=== PATIENT | female | born 1945 | race Caucasian/White ===

== ENCOUNTER 2017-03-14 10:31 | Inpatient (IN) | payer OTHER ==
[2017-03-14] VITALS (15 sets, daily range): BP systolic 110–170; BP diastolic 47–97; PULSE 54–78; TEMP 36.4–36.6; O2SAT 83–100; Ht 165.1 cm; Wt 95.5 kg
[~2017-03-14] VITALS: Ht 165.1 cm; Wt 95.5 kg
--- NOTE | 2017-03-14 10:39 | EMERGENCY ROOM VISIT NOTE ---
History Report prepared by Lindy: Karina Sanford Under the Supervision of: Dr. Kaveh Rosen M.D. First contact with patient: 10:33 Chief Complaint: HEADACHE Stated Complaint: HEADACHE History of Present Illness The patient is a 72 year old female who presents to the Emergency Room with complaints of two syncopal episodes beginning last night. The patient states that last night she had a syncopal episode. Her said she was laying on the floor but is unsure how long the episode lasted. The patient denies feeling a come on of the episode. She then again this morning had a syncopal episode. The patient has been able to ambulate after each episode. She notes a headache and her memory feels "fuzzy". The patient notes tenderness to left side of neck and left shoulder. She also notes chronic abdominal pain. The patient's blood sugar glucose upon arrival was 93. Source of History: patient Onset: last night Position: other (global) Symptom Intensity: 2 Quality: other (syncope) Timing: other (episodes) Associated Symptoms: + neck pain, + abdominal pain Note: The patient is experiencing left shoulder pain. Review of Systems See HPI for pertinent positives & negatives. A total of 10 systems reviewed and were otherwise negative. Past Medical & Surgical Medical Problems: (1) Cardiac arrest (2) Hypertension Family History Patient reports no known family medical history. Social History Smoking Status: Never Smoker Smokeless Tobacco Use: No Marital Status: Housing Status: lives with family Occupation Status: retired Current/Historical Medications Scheduled Atorvastatin (Lipitor), 10 MG PO DAILY Cholecalciferol (D3-50), 1 CAP PO WK Lisinopril/Hctz (Zestoretic 20MG/25MG), 1 TAB PO DAILY Scheduled PRN Aspirin (Aspirin Ec), 325 MG PO DAILY PRN for Pain Allergies Coded Allergies: No Known Allergies (Unverified , 03/14/17) Physical Exam Vital Signs Date Time Temp Pulse Resp B/P (MAP) Pulse Ox O2 Delivery O2 Flow Rate FiO2 03/14/17 14:15 59 18 131/73 99 Room Air 03/14/17 14:00 53 16 136/72 99 Room Air 03/14/17 13:45 59 16 139/77 99 Room Air 03/14/17 13:30 57 14 121/73 100 Room Air 03/14/17 13:15 57 16 140/73 99 Room Air 03/14/17 12:57 67 18 178/108 100 Nasal Cannula 2.0 03/14/17 12:51 56 18 190/77 98 Room Air 03/14/17 12:41 60 20 190/77 96 Room Air 03/14/17 12:38 54 16 200/84 93 Room Air 03/14/17 12:33 48 16 150/86 94 Room Air 03/14/17 12:32 42 03/14/17 12:25 100 Nasal Cannula 2.0 03/14/17 12:12 54 03/14/17 11:51 63 16 168/87 100 Room Air 62 170/109 79 173/95 03/14/17 10:37 67 03/14/17 10:36 36.3 68 18 191/97 95 Room Air Physical Exam GENERAL: Patient is tired appearing and in minimal distress. HEENT: No acute trauma, normocephalic atraumatic, mucous membranes moist, no nasal congestion, no scleral icterus. NECK: No stridor, no adenopathy, no meningismus, trachea is midline. LUNGS: No dyspnea. Clear to auscultation and equal bilaterally. No wheeze, no rhonchi. HEART: Regular rate and rhythm. No murmurs, rubs, gallops appreciated. ABDOMEN: Soft, nontender, bowel sounds positive, no masses appreciated, no peritonitis. BACK: No midline tenderness, no CVA tenderness EXTREMITIES: Normal motion all extremities, no cyanosis, no edema. NEUROLOGIC: Alert and oriented, no acute motor or sensory deficits, no focal weakness, cranial nerves grossly intact. SKIN: Bruising over left eye brow and left lower lip. No rash, no jaundice, no diaphoresis. Medical Decision & Procedures ER Provider Diagnostic Interpretation: Radiology results and stated below per my review and radiologist interpretation: CT SCAN OF THE BRAIN WITHOUT IV CONTRAST CLINICAL HISTORY: Syncope. Headache. COMPARISON STUDY: No priors. TECHNIQUE: Unenhanced axial CT scan of the brain is performed from the vertex to the skull base. The examination is modestly degraded by motion artifact. CT DOSE: 776.86 mGycm FINDINGS: Brain parenchyma: There are age-related involutional changes noting mild subcortical and periventricular microangiopathic change. There is no hemorrhage, mass effect, or evidence of acute territorial ischemia by CT criteria. Mineralization is noted in the basal ganglia. A choroid fissure cyst is incidentally noted on the left. Perez-white matter is preserved. No extra-axial fluid collection is seen. Ventricles, sulci, cisterns: Prominent secondary to involutional change. Intracranial vasculature: There is atherosclerotic calcification of the cavernous carotid arteries. Calvarium: The skeletal structures are osteopenic. There is no depressed calvarial fracture. Sinuses and mastoids: The visualized paranasal sinuses are clear. The mastoid air cells are well pneumatized. Orbits: The bony orbits are grossly intact. There is a left ocular lens implant. IMPRESSION: There is no hemorrhage, mass effect, or evidence of acute territorial ischemia by CT criteria. Electronically signed by: Joey Kong M.D. 03/14/2017 11:19 AM Dictated Date/Time: 03/14/2017 11:17 AM CHEST ONE VIEW PORTABLE CLINICAL HISTORY: Syncope dyspnea COMPARISON STUDY: No previous studies for comparison. FINDINGS: The bones soft tissues and hemidiaphragms are normal. The cardiomediastinal silhouette is normal. The lungs are clear. The pulmonary vasculature is normal. IMPRESSION: Negative chest. Electronically signed by: Al Hanna M.D. 03/14/2017 11:00 AM Dictated Date/Time: 03/14/2017 11:00 AM Laboratory Results 03/14/17 11:00 Red Blood Count 4.70, Mean Corpuscular Volume 88.3, Mean Corpuscular Hemoglobin 29.8, Mean Corpuscular Hemoglobin Concent 33.7, Mean Platelet Volume 10.2, Neutrophils (%) (Auto) 60.2, Lymphocytes (%) (Auto) 28.8, Monocytes (%) (Auto) 8.5, Eosinophils (%) (Auto) 1.9, Basophils (%) (Auto) 0.3, Neutrophils # (Auto) 4.49, Lymphocytes # (Auto) 2.14, Monocytes # (Auto) 0.63, Eosinophils # (Auto) 0.14, Basophils # (Auto) 0.02 03/14/17 11:00 Test 03/14/17 11:00 White Blood Count 7.44 K/uL (4.8-10.8) Red Blood Count 4.70 M/uL (4.2-5.4) Hemoglobin 14.0 g/dL (12.0-16.0) Hematocrit 41.5 % (37-47) Mean Corpuscular Volume 88.3 fL (80-100) Mean Corpuscular Hemoglobin 29.8 pg (25-34) Mean Corpuscular Hemoglobin Concent 33.7 g/dl (32-36) Platelet Count 228 K/uL (130-400) Mean Platelet Volume 10.2 fL (7.4-10.4) Neutrophils (%) (Auto) 60.2 % Lymphocytes (%) (Auto) 28.8 % Monocytes (%) (Auto) 8.5 % Eosinophils (%) (Auto) 1.9 % Basophils (%) (Auto) 0.3 % Neutrophils # (Auto) 4.49 K/uL (1.4-6.5) Lymphocytes # (Auto) 2.14 K/uL (1.2-3.4) Monocytes # (Auto) 0.63 K/uL (0.11-0.59) Eosinophils # (Auto) 0.14 K/uL (0-0.5) Basophils # (Auto) 0.02 K/uL (0-0.2) RDW Standard Deviation 44.8 fL (36.4-46.3) RDW Coefficient of Variation 13.7 % (11.5-14.5) Immature Granulocyte % (Auto) 0.3 % Immature Granulocyte # (Auto) 0.02 K/uL (0.00-0.02) Anion Gap 7.0 mmol/L (3-11) Est Creatinine Clear Calc Drug Dose 58.0 ml/min Estimated GFR () 66.7 Estimated GFR (Non- 57.5 BUN/Creatinine Ratio 13.4 (10-20) Calcium Level 8.5 mg/dl (8.5-10.1) Magnesium Level 2.2 mg/dl (1.8-2.4) Total Creatine Kinase 58 U/L (26-192) Creatine Kinase MB < 0.5 ng/ml (0.5-3.6) Creatine Kinase MB Ratio (0-3.0) Troponin I < 0.015 ng/ml (0-0.045) Thyroid Stimulating Hormone (TSH) 3.230 uIu/ml (0.300-4.500) Laboratory results as reviewed by me. Medications Administered Medications (Trade) Dose Ordered Sig/Fabby Route Start Time Stop Time Status Last Admin Dose Admin Acetaminophen (Tylenol Tab) 1,000 mg NOW STAT PO 03/14/17 11:47 03/14/17 11:48 DC 03/14/17 12:13 1,000 MG Perflutren Lipid Microsphere (Definity) 2 ml ONE ONCE IV 03/14/17 15:05 03/14/17 15:06 DC 03/14/17 15:05 2 ML ECG Indication: syncope Rate (beats per minute): 60 Rhythm: normal sinus Findings: no acute ischemic change, no ectopy ED Course 1034: The patient was evaluated in room B6. A complete history and physical exam was performed. 1130: Normodyne IV 10 mg IV. 1138: The patient's headache has improved. Vitals are being rechecked. Family at bedside notes she has been having difficulty finding words for past 3 days. 1147: Tylenol Tab 1,000 mg PO. 1150: Discussed the patient's case with JESSICA Ogden. The patient will be evaluated for further treatment and disposition. 1156: Upon reevaluation, the patient is hemodynamically stable. Discussed results and treatment plan with the patient. She verbalized understanding and agreement with the treatment plan. The patient will be evaluated for further management. Medical Decision Differential: Vaso-vagal, Intracerebral Event, Neurologic, Infectious, Volume Deficiency, Hypoglycemia, Electrolyte Abnormality, Cardiac Source, Toxicologic, amongst other pathologies entertained. Medication Reconciliation: I attest that I have personally reviewed the patient 's current medication list. Blood pressure screening: Patient was found to have an elevated blood pressure and will be monitored by hospitalist recheck and further treatment. 72 yr old pleasant female with 2 episodes of syncope without preceding event. Both times without clear cause. She notes mild frontal headache. No chest pain , fevers, chills, sob, nausea, vomiting, nor any other symptoms. CT head negative. EKG trop cxr unremarkable. Labs unremarkable. She looks well and is in no distress. Moderate HTN improving while in ED. Given syncope I feel that discharge not safe in this patient and thus requested hospitalist to evaluate her. A short while later patient with unresponsive episode and asystole for roughly 8 to 15 seconds. Code Blue called though patient came too prior to CPR nor ACLS initialization. Repeat vitals HTN and yaquelin though patient without complaints. Will defer further work-up to hospitalist service. Consults Time Called: 1145 Consulting Physician: JESSICA Ogden Returned Call: 1150 Discussed the patient's case. The patient will be evaluated for further treatment and disposition. Impression Primary Impression: Syncope Additional Impressions: Word finding problem Head injury, closed Scribe Attestation The scribe's documentation has been prepared under my direction and personally reviewed by me in its entirety. I confirm that the note above accurately reflects all work, treatment, procedures, and medical decision making performed by me. Departure Information Dispostion Being Evaluated By Hospitalist Referrals No Doctor, Assigned (PCP) Problem Qualifiers
--- NOTE | 2017-03-14 11:01 | DIAGNOSTIC IMAGING REPORT ---
CHEST ONE VIEW PORTABLE CLINICAL HISTORY: Syncope dyspnea COMPARISON STUDY: No previous studies for comparison. FINDINGS: The bones soft tissues and hemidiaphragms are normal. The cardiomediastinal silhouette is normal. The lungs are clear. The pulmonary vasculature is normal. IMPRESSION: Negative chest. Electronically signed by: Al Hanna M.D. 03/14/2017 11:00 AM Dictated Date/Time: 03/14/2017 11:00 AM
[2017-03-14 11:11] LABS: BASO % 0.3 %; BASO ABS # 0.02 K/uL (0-0.2); COMPLETE YES; EOS % 1.9 %; HEMATOCRIT 41.5 % (37-47); IG% 0.3 %; LYMPH % 28.8 %; LYMPH ABS # 2.14 K/uL (1.2-3.4); MEAN CELL VOLUME 88.3 fL (80-100); MEAN CORPUSCULAR HEMOGLOBIN 29.8 pg (25-34); MEAN CORPUSCULAR HGB CONC 33.7 g/dl (32-36); MEAN PLATELET VOLUME 10.2 fL (7.4-10.4); MONO % 8.5 %; NEUT % 60.2 %; PLATELET COUNT 228 K/uL (130-400); WHITE BLOOD COUNT 7.44 K/uL (4.8-10.8)
--- NOTE | 2017-03-14 11:21 | DIAGNOSTIC IMAGING REPORT ---
CT SCAN OF THE BRAIN WITHOUT IV CONTRAST CLINICAL HISTORY: Syncope. Headache. COMPARISON STUDY: No priors. TECHNIQUE: Unenhanced axial CT scan of the brain is performed from the vertex to the skull base. The examination is modestly degraded by motion artifact. CT DOSE: 776.86 mGycm FINDINGS: Brain parenchyma: There are age-related involutional changes noting mild subcortical and periventricular microangiopathic change. There is no hemorrhage, mass effect, or evidence of acute territorial ischemia by CT criteria. Mineralization is noted in the basal ganglia. A choroid fissure cyst is incidentally noted on the left. Perez-white matter is preserved. No extra-axial fluid collection is seen. Ventricles, sulci, cisterns: Prominent secondary to involutional change. Intracranial vasculature: There is atherosclerotic calcification of the cavernous carotid arteries. Calvarium: The skeletal structures are osteopenic. There is no depressed calvarial fracture. Sinuses and mastoids: The visualized paranasal sinuses are clear. The mastoid air cells are well pneumatized. Orbits: The bony orbits are grossly intact. There is a left ocular lens implant. IMPRESSION: There is no hemorrhage, mass effect, or evidence of acute territorial ischemia by CT criteria. Electronically signed by: Joey Kong M.D. 03/14/2017 11:19 AM Dictated Date/Time: 03/14/2017 11:17 AM
[2017-03-14] MEDS ORDERED: LABETALOL HCL IV 5 MG/ML 20ML IV STA (11:30)
[2017-03-14 11:37] LABS: BLOOD UREA NITROGEN 13 mg/dl (7-18); BUN/CREATININE RATIO 13.4 (10-20); CALCIUM 8.5 mg/dl (8.5-10.1); CARBON DIOXIDE 26 mmol/L (21-32); CHLORIDE 110 mmol/L (98-107); CREATININE 0.97 mg/dl (0.60-1.20); GLUCOSE 99 mg/dl (70-99); SODIUM 143 mmol/L (136-145)
[2017-03-14] MEDS ORDERED: CHOLCAP2 PO (11:47)
[2017-03-14] MEDS ORDERED: ACETAMINOPHEN 500 MG TAB PO STA (11:47)
[2017-03-14] MEDS ORDERED: ASPI325T39 PO (11:50)
[2017-03-14] MEDS ORDERED: ATOR10TA82 PO (11:55)
[2017-03-14] MEDS ORDERED: LISI-788 PO (11:56)
[2017-03-14] MEDS ORDERED: ACETAMINOPHEN 325 MG TAB PO PRN (13:30)
[2017-03-14] MEDS ORDERED: ONDANSETRON INJ 2 MG/ML 2 ML VIAL IV PRN (13:30)
[2017-03-14] MEDS ORDERED: NITROGLYCERIN 0.4 MG SL PER TAB CHARGE SL PRN (13:30)
[2017-03-14] MEDS ORDERED: LISINOPRIL 5 MG TAB PO ONE (14:00)
[2017-03-14] MEDS ORDERED: PERFLUTREN LIPID MICROSPHERE (DEFINITY) IV ONE (15:05)
--- NOTE | 2017-03-14 15:45 | History and Physical ---
History & Physical Date & Time of Service: Mar 14, 2017 at 13:37 Chief Complaint: Headache Primary Care Physician: Liliam Mackey D.O. History of Present Illness Source: patient, spouse, clinic records This is a 72 year old female with PMH of hypertension, dyslipidemia, CKD stage III, and other problems listed below who presented to the ED for syncope. Patient had 2 episodes of syncope in past 12 hours. First episode occurred last night- patient does not recall that episode. Her heard a thump from the next room and found her unconscious on the bathroom floor. There was no seizure activity or incontinence. She awoke after approximately 30 seconds. She sustained a facial bruise from falling. Then this morning while sitting on the couch she suddenly slumped backwards and became unconscious. This episode lasted under one minute. She denies any prodrome. No dizziness, chest pain, palpitations, SOB. 911 was called. states for EMS patient could not answer name of president but could answer other questions correctly. states mental status is at baseline in ER. No prior syncope since childhood. Patient was seen by PCP Dr. Mackey on 03/12 and noted word finding difficulty. Onset was 6 months ago. No other focal neurologic symptoms. She reports mild right sided ZAMARRIPA which is intermittent for weeks and self-resolves. Has chronic low back/ LLE pain. She also notes increased urinary frequency. On presentation to the ER patient was hypertensive to 190s systolic. Labetalol was ordered but not given as her BP lowered to 150s systolic. She was initially in NSR with no significant EKG findings. Labs were unremarkable. CT head showed no acute findings. Her stroke score was zero. During my exam patient stated she felt like she was going to faint. The head of bed was lowered. Patient then became unresponsive. Asystole on monitor. Code blue was called. Within approximately 10 seconds she was found to have a pulse and awakened. Rhythm strip showed approximately 8 seconds of asystole. EKG showed sinus bradycardia without ischemic findings. HR improved from 40s to 50s- 60s. She was hypertensive to 200 systolic which improved to 120s-140s. She was evaluated by medical record librarians teacher Dr. Franks who performed bedside echo which showed no obvious wall motion or valve abnormalities. She is now feeling tired. No history of cardiac disorder, TIA, CVA. Past Medical/Surgical History Medical Problems: (1) Benign neoplasm of colon Status: Chronic (2) CKD (chronic kidney disease), stage III Status: Chronic (3) Dyslipidemia Status: Chronic (4) History of ulcerative colitis Status: Chronic (5) Hypertension Status: Chronic (6) Obesity (BMI 30-39.9) Status: Chronic Surgical Problems: (1) H/O colonoscopy with polypectomy Status: Chronic (2) History of cataract surgery Status: Chronic (3) History of hysterectomy Status: Chronic (4) S/P appendectomy Status: Chronic (5) S/P cholecystectomy Status: Chronic (6) S/p lumbar or sacral spine injection Status: Chronic Family History FH: CAD (coronary artery disease) FATHER (first [place] age 65, in 70s of [place]) Social History Smoking Status: Former Smoker Smokeless Tobacco Use: No Alcohol Use: occasionally Marital Status: Housing status: lives with significant other Occupational Status: retired Multi-Drug Resistant Organisms History of MDRO: No Allergies Coded Allergies: No Known Allergies (Unverified , 03/14/17) Home Medications Scheduled Atorvastatin (Lipitor), 10 MG PO HS Cholecalciferol (D3-50), 1 CAP PO WK Scheduled PRN Aspirin (Aspirin Ec), 325 MG PO DAILY PRN for Pain Review of Systems Ten systems reviewed and negative except as noted in HPI. Physical Exam Vital Signs Date Time Temp Pulse Resp B/P (MAP) Pulse Ox O2 Delivery O2 Flow Rate FiO2 03/14/17 12:57 67 18 178/108 100 Nasal Cannula 2.0 03/14/17 12:51 56 18 190/77 98 Room Air 03/14/17 12:41 60 20 190/77 96 Room Air 03/14/17 12:38 54 16 200/84 93 Room Air 03/14/17 12:33 48 16 150/86 94 Room Air 03/14/17 12:32 42 03/14/17 12:25 100 Nasal Cannula 2.0 03/14/17 12:12 54 03/14/17 11:51 63 16 168/87 100 Room Air 62 170/109 79 173/95 03/14/17 10:37 67 03/14/17 10:36 36.3 68 18 191/97 95 Room Air General Appearance: WD/WN, no apparent distress, + pertinent finding (alert 72 year old female) Head: normocephalic, atraumatic Eyes: normal inspection, PERRL, EOMI, sclerae normal ENT: hearing grossly normal, pharynx normal Neck: supple, trachea midline Respiratory/Chest: lungs clear, normal breath sounds, no respiratory distress, no accessory muscle use Cardiovascular: regular rate, rhythm, no murmur Abdomen/GI: normal bowel sounds, non tender, soft Extremities/Musculoskelatal: no calf tenderness, no pedal edema Neurologic/Psych: traffic enumerator II-XII nml as tested, no motor/sensory deficits, alert, normal mood/affect, oriented x 3 Skin: normal color, warm/dry Diagnostics Laboratory Results Results Past 24 Hours Test 03/14/17 11:00 03/14/17 13:35 Range/Units White Blood Count 7.44 4.8-10.8 K/uL Red Blood Count 4.70 4.2-5.4 M/uL Hemoglobin 14.0 12.0-16.0 g/dL Hematocrit 41.5 37-47 % Mean Corpuscular Volume 88.3 80-100 fL Mean Corpuscular Hemoglobin 29.8 25-34 pg Mean Corpuscular Hemoglobin Concent 33.7 32-36 g/dl Platelet Count 228 130-400 K/uL Mean Platelet Volume 10.2 7.4-10.4 fL Neutrophils (%) (Auto) 60.2 % Lymphocytes (%) (Auto) 28.8 % Monocytes (%) (Auto) 8.5 % Eosinophils (%) (Auto) 1.9 % Basophils (%) (Auto) 0.3 % Neutrophils # (Auto) 4.49 1.4-6.5 K/uL Lymphocytes # (Auto) 2.14 1.2-3.4 K/uL Monocytes # (Auto) 0.63 0.11-0.59 K/uL Eosinophils # (Auto) 0.14 0-0.5 K/uL Basophils # (Auto) 0.02 0-0.2 K/uL RDW Standard Deviation 44.8 36.4-46.3 fL RDW Coefficient of Variation 13.7 11.5-14.5 % Immature Granulocyte % (Auto) 0.3 % Immature Granulocyte # (Auto) 0.02 0.00-0.02 K/uL Sodium Level 143 136-145 mmol/L Potassium Level 4.0 3.5-5.1 mmol/L Chloride Level 110 98-107 mmol/L Carbon Dioxide Level 26 21-32 mmol/L Anion Gap 7.0 3-11 mmol/L Blood Urea Nitrogen 13 7-18 mg/dl Creatinine 0.97 0.60-1.20 mg/dl Est Creatinine Clear Calc Drug Dose 58.0 ml/min Estimated GFR () 66.7 Estimated GFR (Non- 57.5 BUN/Creatinine Ratio 13.4 10-20 Random Glucose 99 70-99 mg/dl Calcium Level 8.5 8.5-10.1 mg/dl Total Creatine Kinase 58 26-192 U/L Creatine Kinase MB < 0.5 0.5-3.6 ng/ml Creatine Kinase MB Ratio 0-3.0 Troponin I < 0.015 0-0.045 ng/ml Diagnostic Radiology CT SCAN OF THE BRAIN WITHOUT IV CONTRAST CLINICAL HISTORY: Syncope. Headache. COMPARISON STUDY: No priors. TECHNIQUE: Unenhanced axial CT scan of the brain is performed from the vertex to the skull base. The examination is modestly degraded by motion artifact. CT DOSE: 776.86 mGycm FINDINGS: Brain parenchyma: There are age-related involutional changes noting mild subcortical and periventricular microangiopathic change. There is no hemorrhage, mass effect, or evidence of acute territorial ischemia by CT criteria. Mineralization is noted in the basal ganglia. A choroid fissure cyst is incidentally noted on the left. Perez-white matter is preserved. No extra-axial fluid collection is seen. Ventricles, sulci, cisterns: Prominent secondary to involutional change. Intracranial vasculature: There is atherosclerotic calcification of the cavernous carotid arteries. Calvarium: The skeletal structures are osteopenic. There is no depressed calvarial fracture. Sinuses and mastoids: The visualized paranasal sinuses are clear. The mastoid air cells are well pneumatized. Orbits: The bony orbits are grossly intact. There is a left ocular lens implant. IMPRESSION: There is no hemorrhage, mass effect, or evidence of acute territorial ischemia by CT criteria. CHEST ONE VIEW PORTABLE CLINICAL HISTORY: Syncope dyspnea COMPARISON STUDY: No previous studies for comparison. FINDINGS: The bones soft tissues and hemidiaphragms are normal. The cardiomediastinal silhouette is normal. The lungs are clear. The pulmonary vasculature is normal. IMPRESSION: Negative chest. EKG initial EKG- NSR, 60 bpm, no ST or T wave abnormality repeat EKG post cardiac arrest- sinus bradycardia rate 51 bpm, no ST or T wave abnormality Impression Assessment and Plan SYNCOPE/ CARDIAC ARREST Presented with 2 episodes of syncope at home In ER had unresponsive episode with approximately 8 seconds of asystole on rhythm strip, code blue called, patient awoke before CPR could be initiated Bedside echo showed no obvious wall motion or valve abnormalities Check TTE No ischemic findings on EKG; initial troponin neg- will trend cardiac enzymes Initial ER labs unremarkable Check magnesium- WNL, TSH-WNL, lyme screen-pending May need EP study/ pacemaker Consult cardiology- Dr. Freeman aware Further recommendations per cardiology/ intensive HYPERTENSIVE URGENCY BP elevated high as 200 systolic in ER Improved spontaneously to 100s Was on Maxzide in the past; not currently on any antihypertensives at home WORD FINDING DIFFICULTY Ongoing intermittently x 6 months; speaking without issues on exam; NIH stroke scale= [address] head- no acute findings Likely no acute neurological issue Neuro checks MRI brain and US carotid arteries tomorrow morning URINARY FREQUENCY Check UA, urine culture if indicated DYSLIPIDEMIA Continue statin DVT PROPHYLAXIS Lovenox SQ CODE STATUS= FULL CODE per my discussion with the patient DISPOSITION Lives with Follows with Dr. Liliam Mackey for primary care Patient seen in collaboration with Dr. Padilla. Please see his addendum. ADDENDUM: This is a 72 year old female with recurrent syncopal episodes; presents to the ER; had an episode of syncope with heart block/asystole noted on the monitor. Code klaus called, but she regained consciousness and pulse in ~ 8 seconds. No residual symptoms - states she feels fine now. GEN: no acute distress CVS: +bradycardia, regular rhythm LUNGS: CTA b/l Syncope/Heart Block admit to ICU check TSH, Lyme, Mg monitor in tele transvenous pacer trend enzymes, check echo repeat EKG in AM cardio consultation Advanced Directives Existing Living Will: No Existing Power of Sql Etl Developer: No VTE Prophylaxis VTE Risk Assessment Done? Y/N: Yes Risk Level: Moderate
[2017-03-14] MEDS ORDERED: DOPamine 400MG / 250ML D5W ONE (16:41)
[2017-03-14 16:44] LABS: LYME DISEASE AB IGG NEG (NEG); LYME DISEASE AB IGM NEG (NEG)
[2017-03-14 16:50] LABS: PROTHROMBIN TIME (PATIENT) 11.2 SECONDS (9.0-12.0)
[2017-03-14 16:51] LABS: URINE APPEARANCE CLOUDY (CLEAR); URINE BILIRUBIN NEG (NEG); URINE COLOR YELLOW; URINE EPITHELIAL CELL AUTO >30 /lpf (0-5); URINE NITRITE NEG (NEG); UROBILINOGEN NEG (NEG); ZZUR CULT IF INDIC CLEAN CATCH YES
[2017-03-14 16:55] LABS: MANUAL MICROSCOPIC REQUIRED? NO; REVIEW REQ? YES
--- NOTE | 2017-03-14 16:58 | Critical Care Consultation ---
Critical Care Consultation Date of Consultation: Mar 14, 2017. Attending Physician: James Padilla DO Reason for Consultation: asystole History of Present Illness This is a 72 yo f that is presenting to us after experiencing multiple syncopal episodes associated with a complete heart block. For the past 24 hours the patient has had multiple syncopal episodes. They have no chest pain or SOB associated with it however when she "feels it coming on" she has a sensation of lightheadedness " and I can feel my hear stop beating for 7 or 8 beats". This occurred three times yesterday all with syncope and three time today. One episode yesterday caused injury to her left eyelid and lid and today she had these episodes while in the ED and in the ICU. In the ICU asystole was noted on the monitor and a code blue was called however her asystole resolved on its own before chest compressions could be started. While in the ICU she was laying in bed and once again asystole was noted. Transcutaneous pacers were placed on the chest and patient resolved on her own after 5 seconds. Prior to her asystole she told the nurse " it's coming on" then she developed a blank stare and continued to blink. Once the asystole resolved she started to speak and was no confused however had a hard time " finding my words". Prior to the last 24 hours this has never happened before. She does not that she had syncopal episodes as a child however has not had one since then. She has no significant cardiac history. She does note that her mother had suddenly in her 50s but she thought it was because of a very stressful life. No specific cause of that she could think of. She smoked 20 years prior and she has never had an IA. Past Medical/Surgical History H/O hysterectomy H/O Cataract Surgery Hyperlipidemia Family History FH: CAD (coronary artery disease) FATHER (first IA age 65, in 70s of IA) Social History Smoking Status: Former Smoker Smokeless Tobacco Use: No Alcohol Use: occasionally Marital Status: Housing Status: lives with family Occupation Status: retired Allergies Coded Allergies: No Known Allergies (Unverified , 03/14/17) Home Medications Scheduled Atorvastatin (Lipitor), 10 MG PO HS Cholecalciferol (D3-50), 1 CAP PO WK Scheduled PRN Aspirin (Aspirin Ec), 325 MG PO DAILY PRN for Pain Current Inpatient Medications Current Inpatient Medications Medications (Trade) Dose Ordered Sig/Fabby Route Start Time Stop Time Status Last Admin Dose Admin Acetaminophen (Tylenol Tab) 650 mg Q4H PRN PO 03/14/17 13:30 04/13/17 13:29 Nitroglycerin (Nitrostat Tab) 0.4 mg UD PRN SL 03/14/17 13:30 04/13/17 13:29 Ondansetron HCl (Zofran Inj) 4 mg Q6H PRN IV 03/14/17 13:30 04/13/17 13:29 Enoxaparin Sodium (Lovenox Inj) 40 mg Q24H SQ 03/14/17 14:00 04/13/17 13:59 UNV Review of Systems Constitutional: No fever Eyes: No worsening of vision ENT: No hearing loss Respiratory: No cough, No sputum, No wheezing, No shortness of breath, No dyspnea on exertion, No dyspnea at rest Cardiovascular: No chest pain Abdomen: No pain, No nausea, No vomiting, No diarrhea, No constipation Musculoskeletal: No joint pain, No muscle pain Neurologic: No weakness, No numbness/tingling, No balance problems Psychiatric: No depression symptoms Endocrine: No fatigue Integumentary: No rash Physical Exam Date Time Temp Pulse Resp B/P (MAP) Pulse Ox O2 Delivery O2 Flow Rate FiO2 03/14/17 16:00 99 Room Air 03/14/17 15:00 61 16 144/66 99 Room Air 03/14/17 14:30 66 16 116/71 99 Room Air 03/14/17 14:15 59 18 131/73 99 Room Air 03/14/17 14:00 53 16 136/72 99 Room Air 03/14/17 13:45 59 16 139/77 99 Room Air 03/14/17 13:30 57 14 121/73 100 Room Air 03/14/17 13:15 57 16 140/73 99 Room Air 03/14/17 12:57 67 18 178/108 100 Nasal Cannula 2.0 03/14/17 12:51 56 18 190/77 98 Room Air 03/14/17 12:41 60 20 190/77 96 Room Air 03/14/17 12:38 54 16 200/84 93 Room Air 03/14/17 12:33 48 16 150/86 94 Room Air 03/14/17 12:32 42 03/14/17 12:25 100 Nasal Cannula 2.0 03/14/17 12:12 54 03/14/17 11:51 63 16 168/87 100 Room Air 62 170/109 79 173/95 03/14/17 10:37 67 03/14/17 10:36 36.3 68 18 191/97 95 Room Air General Appearance: well-appearing, no apparent distress Head: normocephalic Eyes: PERRLA, EOMI ENT: normal ear exam Neck: normal range of motion, no tenderness Respiratory: breath sounds normal, no respiratory distress Cardiovasular: regular rate/rhythm, normal S1S2, no murmur Abdomen: non tender, normal bowel sounds, no rebound, no guarding Back: normal inspection Upper Extremities: no edema, normal ROM Lower Extremities: no edema, normal ROM Pulses: carotid (R) (1+), carotid (L) (1+), dorsalis pedis (R) (1+), dorsalis pedis (L) (1+) Neuro: alert, oriented x 3, other (patient feels like she is unable to find her words however does respond appropriately ) Laboratory Results Last 24 Hours Test 03/14/17 11:00 03/14/17 16:02 White Blood Count 7.44 K/uL Red Blood Count 4.70 M/uL Hemoglobin 14.0 g/dL Hematocrit 41.5 % Mean Corpuscular Volume 88.3 fL Mean Corpuscular Hemoglobin 29.8 pg Mean Corpuscular Hemoglobin Concent 33.7 g/dl Platelet Count 228 K/uL Mean Platelet Volume 10.2 fL Neutrophils (%) (Auto) 60.2 % Lymphocytes (%) (Auto) 28.8 % Monocytes (%) (Auto) 8.5 % Eosinophils (%) (Auto) 1.9 % Basophils (%) (Auto) 0.3 % Neutrophils # (Auto) 4.49 K/uL Lymphocytes # (Auto) 2.14 K/uL Monocytes # (Auto) 0.63 K/uL Eosinophils # (Auto) 0.14 K/uL Basophils # (Auto) 0.02 K/uL RDW Standard Deviation 44.8 fL RDW Coefficient of Variation 13.7 % Immature Granulocyte % (Auto) 0.3 % Immature Granulocyte # (Auto) 0.02 K/uL Sodium Level 143 mmol/L Potassium Level 4.0 mmol/L Chloride Level 110 mmol/L Carbon Dioxide Level 26 mmol/L Anion Gap 7.0 mmol/L Blood Urea Nitrogen 13 mg/dl Creatinine 0.97 mg/dl Est Creatinine Clear Calc Drug Dose 58.0 ml/min Estimated GFR () 66.7 Estimated GFR (Non- 57.5 BUN/Creatinine Ratio 13.4 Random Glucose 99 mg/dl Calcium Level 8.5 mg/dl Magnesium Level 2.2 mg/dl Total Creatine Kinase 58 U/L Creatine Kinase MB < 0.5 ng/ml Creatine Kinase MB Ratio Troponin I < 0.015 ng/ml Thyroid Stimulating Hormone (TSH) 3.230 uIu/ml Diagnostic Results CHEST ONE VIEW PORTABLE CLINICAL HISTORY: Syncope dyspnea COMPARISON STUDY: No previous studies for comparison. FINDINGS: The bones soft tissues and hemidiaphragms are normal. The cardiomediastinal silhouette is normal. The lungs are clear. The pulmonary vasculature is normal. IMPRESSION: Negative chest. CT SCAN OF THE BRAIN WITHOUT IV CONTRAST CLINICAL HISTORY: Syncope. Headache. COMPARISON STUDY: No priors. TECHNIQUE: Unenhanced axial CT scan of the brain is performed from the vertex to the skull base. The examination is modestly degraded by motion artifact. CT DOSE: 776.86 mGycm FINDINGS: Brain parenchyma: There are age-related involutional changes noting mild subcortical and periventricular microangiopathic change. There is no hemorrhage, mass effect, or evidence of acute territorial ischemia by CT criteria. Mineralization is noted in the basal ganglia. A choroid fissure cyst is incidentally noted on the left. Perez-white matter is preserved. No extra-axial fluid collection is seen. Ventricles, sulci, cisterns: Prominent secondary to involutional change. Intracranial vasculature: There is atherosclerotic calcification of the cavernous carotid arteries. Calvarium: The skeletal structures are osteopenic. There is no depressed calvarial fracture. Sinuses and mastoids: The visualized paranasal sinuses are clear. The mastoid air cells are well pneumatized. Orbits: The bony orbits are grossly intact. There is a left ocular lens implant. IMPRESSION: There is no hemorrhage, mass effect, or evidence of acute territorial ischemia by CT criteria. Assessment & Plan 1. Symptomatic paroxysmal heart block 2. Hyperlipidemia 3. Metabolic encephalopathy possibly secondary to recurring heart block vs cerebral ischemia NVS - alert and oriented x 3 - MRI is pending per primary team, CT negative CVS - Discussed case with cardiology - as patient is having recurring episodes of asystole and patient is non responsive during these epiodes she will receive a pacemaker - transvenous pacer in the meantime - 2 mcg of dopamine - Transcutaneous pacer if patient is > 15 seconds with asystole RESP - O2 per nursing protocol GI NPO in anticipation for intervention - monitor I&O ENDO - BSG AC HS - if within goal range by 24 hours will d/c DVT - SCD, restart enoxaparin after intervention completed Resident Physician Supervision Note: Dr. Lugo was resident physician during care of patient. I separately evaluated patient and did history and exam. I discussed the case with the resident and generally agree with the findings and plan. Bradycardia with a greater than 6 second cause, required temporary transcutaneous pacing in the ICU. Discussed case with Dr. Freeman and Dr. Montiel, temporary pacemaker inserted in research laboratory specialist. I have personally spent 40 minutes of critical care time in the direct management of this patient. This is a life/limb threatening event. This includes time spent evaluating patient, direct bedside care, chart review, placing orders, interpretation of diagnostic studies, discussion with consultants, patient, and family members, as well as other required patient management activities. This time is exclusive of all separately billable procedures, and teaching time and separate from and in addition to any other critical care service time. Documented By: Trenton Franks, DO Additional Copies To Liliam Mackey D.O.
[2017-03-14] MEDS ORDERED: NURSING DECISION MEDICATION ORDER SCH (17:00)
[2017-03-14] MEDS ORDERED: FENTANYL CITRATE INJ 50 MCG/1 ML 2 ML VIAL ONE (17:26)
[2017-03-14] MEDS ORDERED: DOPAMINE 400MG / D5W IV PRN (18:00)
--- NOTE | 2017-03-14 19:55 | CARDIOLOGY CONSULTATION ---
DATE OF CONSULTATION: 03/14/2017 INDICATION: Syncope. REFERRING: Lindsey Moraes PA-C. PRIMARY CARE PHYSICIAN: Liliam Mackey DO HISTORY OF PRESENT ILLNESS: The patient is a 72-year-old female whose history is notable for hypertension, chronic renal insufficiency, chronic back pain, history of past diagnosis of ulcerative colitis per review of records, but no prior cardiac history. She does carry a history of hyperlipidemia with intermittent lipid reduction therapy, history of recent memory issues, chronic lumbar disc disease, presents now after being brought to the Emergency Room by family after noting patient having had several recent episodes of lightheadedness with last evening associated with syncope with significant episode last evening, lasting approximately 30 seconds with the patient falling and injuring face and lip. At that time occurred without patient having recollection of all. This morning she had similar episode where she slumped backwards and was transiently unconscious for less than 1 minute. The patient notes she sometimes feels them coming on. Had a headache this morning. Notes no chest pain, shortness of breath, orthopnea, PND or peripheral edema. Notes no exertional complaints. Has chronic bowel issues with constipation and generalized bowel upset, but no indigestion or heartburn. Notes no acute weight loss or gain. Notes no fevers, chills or sweats. Notes no melena, hematochezia, dysuria or hematuria. Today, while being evaluated in the Emergency Room, she once again had a complete sinus arrest with asystole with slow return to sinus bradycardia with transient junctional rhythm. The patient has been referred for hospitalization. REVIEW OF SYSTEMS: Otherwise negative. ALLERGIES: None. MEDICATIONS: At home were atorvastatin 10 mg per day, lisinopril and hydrochlorothiazide 20/25 mg per day, cholecalciferol 1 capsule per week. PAST SURGICAL HISTORY: Notable for prior hysterectomy, cholecystectomy, appendectomy, cataract extractions. FAMILY HISTORY: Notable for heart disease in father. SOCIAL HISTORY: The patient is a nonsmoker since 1991. Uses approximately 1 alcoholic beverage per day. PHYSICAL EXAMINATION: GENERAL: The patient is a pleasant, age-appropriate female in no acute distress. Currently denies any chest pains or discomfort. She was examined in the ER and once again seen in the intensive care unit after admission with the patient having transient bradycardic event on transfer to bed. HEENT: Notable for small contusion on the left orbit and lip. NECK: Thin. There is no jugular venous distention. There are no carotid bruits audible. LUNGS: Clear. CARDIOVASCULAR: Regular with normal S1, S2. There is no murmur, gallop or rub. PMI is nondisplaced. ABDOMEN: Soft with mild distention. There is minimal tenderness in the lower quadrants. There is no rebound or guarding. EXTREMITIES: Without cyanosis or clubbing. There is no peripheral edema. NEUROLOGIC: The patient is answering most questions appropriately. DIAGNOSTIC DATA: EKG reveals sinus rhythm with normal tracing. LABORATORY STUDIES: White cell count 7.4, hemoglobin is 14.0. Sodium 143, potassium is 4.0, chloride is 110, bicarb is 26, BUN 13, creatinine 0.97. CK-MB and troponins are normal. TSH is 3.2. Outpatient laboratory studies are notable for hyperlipidemia, past elevation of CRP and sed rate of 25 in June 2016. Chest x-ray reveals no infiltrate or edema. Echocardiogram performed at bedside in the Emergency Room demonstrates on preliminary review, preserved LV systolic function and no significant valvular process. IMPRESSION: A 72-year-old female admitted with Dominguez-Edwards syncope secondary to intermittent sinus arrest and profound pauses. No overt inciting cause. Initial enzymes and EKG do not suggest ischemia with normal tracing immediately post. She has had now 4 episodes in the last 24 hours. PLAN: She will be maintained bed rest in the ICU with external pacer patches in place. The patient will be referred for anticipated dual-chamber pacemaker insertion. If the patient episodes become more pronounced, we will consider transcutaneous pacer insertion and possible low dose dopamine infusion.
[2017-03-14] MEDS ORDERED: MoRPHine SULFATE 2 MG/ML CARP IV STA (20:13)
--- NOTE | 2017-03-14 20:57 | Procedure Note ---
Procedure Note Procedure Date Mar 14, 2017. Procedure Description Procedure Name: Transvenous temporary pacemaker Insertion Procedure time out: patient ID confirmed, correct procedure Consent obtained: written Indications: other (Symptomatic sinus arrest) Description: Local anesthesia with lidocaine. No sedation used. Right IJ access obtained via ultrasound guidance 6Fr sheath placed Temporary pacing wire navigated to RV under fluoro guidance. Pacing confirmed at < 1mA. Wire and sheath sutured into place. Pacer left at 60 bpm, 10mA output. Summary: - Successful transvenous temporary pacemaker insertion. Complications: none Patient tolerated procedure: well Post-procedure vital signs: reviewed and stable
[2017-03-14] MEDS ORDERED: ENOXAPARIN 40 MG/0.4 ML SYR SQ SCH (21:00)
[2017-03-14] MEDS ORDERED: NURSING VERBAL MED ORDER ONE (23:30)
[2017-03-15] VITALS (35 sets, daily range): BP systolic 98–172; BP diastolic 53–103; PULSE 60–78; TEMP 36.6–37.1; O2SAT 89–98
[2017-03-15] MEDS ORDERED: MoRPHine SULFATE 2 MG/ML CARP IV STA (04:41)
[2017-03-15] MEDS ORDERED: CEFAZOLIN IV 2,000 MG in DEXTROSE 5% 50ML 50 ML IV SCH ×2 (06:00→19:00)
[2017-03-15 06:15] LABS: BASO % 0.2 %; BASO ABS # 0.02 K/uL (0-0.2); COMPLETE YES; HEMATOCRIT 41.2 % (37-47); IG% 0.1 %; LYMPH % 33.8 %; LYMPH ABS # 2.85 K/uL (1.2-3.4); MEAN CELL VOLUME 88.8 fL (80-100); MEAN CORPUSCULAR HEMOGLOBIN 29.5 pg (25-34); MEAN CORPUSCULAR HGB CONC 33.3 g/dl (32-36); MEAN PLATELET VOLUME 10.6 fL (7.4-10.4); MONO % 9.3 %; NEUT % 54.6 %; PLATELET COUNT 207 K/uL (130-400); RED BLOOD COUNT 4.64 M/uL (4.2-5.4); WHITE BLOOD COUNT 8.42 K/uL (4.8-10.8)
[2017-03-15 06:51] LABS: BUN/CREATININE RATIO 12.8 (10-20); CALCIUM 8.4 mg/dl (8.5-10.1); CREATININE 0.91 mg/dl (0.60-1.20); MAGNESIUM 2.2 mg/dl (1.8-2.4); POTASSIUM 3.7 mmol/L (3.5-5.1)
[2017-03-15 06:56] LABS: ALB/GLOB RATIO 1.2 (0.9-2); CHOLESTEROL/HDL RATIO 3.3; PHOSPHORUS 2.8 mg/dl (2.5-4.9)
--- NOTE | 2017-03-15 10:29 | Critical Care Progress Note ---
Critical Care Progress Note Date of Service Mar 15, 2017. ICU Day ICU Day Number: [address] Franks Subjective No events overnight since the transvenous pacer was placed. Denies any chest pain, SOB, lightheadedness. Pending permanent placement of pacemaker today. Objective General: ambulatory, not in acute distress, pacer pads in place Skin: no rashes noted, no suspicious lesions, no areas of inflammations/ lacerations/ erythema noted, transvenous site is clean and dry CVS: S1/ S2 noted, RRR, no rubs/ murmurs noted, no cyanosis RVS:not in acute respiratory distress, no wheezing/ rales/ crackles noted, decreased to bilat bases ENT: no erythema/ injection/ ulcerations noted in the pharynx, no lymphadenopathy Neck:inspection WNL, full ROM of neck, no bruits noted, transvenous pacer noted ABD: BSx4, no pain/ tenderness on palpation, no organomegaly MSK: inspection of all limbs WNL, motor and sensation intact in all limbs, no swelling/ pain on palpation of joints NVS: PERRL, EOMI, sensation intact in all extremities Lymph: No lymphadenopathy palpable Assessment & Plan 1. Symptomatic paroxysmal heart block 2. Hyperlipidemia 3. Metabolic encephalopathy possibly secondary to recurring heart block vs cerebral ischemia NVS - alert and oriented x 3 - MRI is pending per primary team, CT negative- may have to be deferred until after the pacer placed or d/c as ALOC more likely secondary to the asystolic episodes CVS - Discussed case with cardiology - transvenous pacer currently in place - permanent pacer pending placement today RESP - O2 per nursing protocol GI NPO in anticipation for intervention - monitor I&O ENDO - BSG have been within goal range DVT - SCD, restart enoxaparin after intervention completed Patient is an acceptable candidate for downgrade after procedure is completed Resident Physician Supervision Note: Dr. Lugo was resident physician during care of patient. I separately evaluated patient and did history and exam. I discussed the case with the resident and generally agree with the findings and plan. Patient feeling improved status post pacemaker. Held additional neuroimaging this morning due to pacer requiring placement first. Stable for downgraded to telemetry status given permanent pacemaker placement. Documented By: Trenton Franks DO Consults & Procedures Consultants: Dr Freeman/ Dr Montiel- CVS Procedures: Transvenous pacer Data Medications: Current Inpatient Medications Medications (Trade) Dose Ordered Sig/Fabby Route Start Time Stop Time Status Last Admin Dose Admin Acetaminophen (Tylenol Tab) 650 mg Q4H PRN PO 03/14/17 13:30 04/13/17 13:29 03/14/17 20:24 650 MG Nitroglycerin (Nitrostat Tab) 0.4 mg UD PRN SL 03/14/17 13:30 04/13/17 13:29 Ondansetron HCl (Zofran Inj) 4 mg Q6H PRN IV 03/14/17 13:30 04/13/17 13:29 Enoxaparin Sodium (Lovenox Inj) 40 mg Q24H SQ 03/14/17 21:00 04/13/17 20:59 Future Hold Dopamine HCl/ Dextrose 250 ml @ 0 mls/hr Q0M PRN IV 03/14/17 18:00 04/13/17 17:59 Cefazolin Sodium 60 ml @ 100 mls/hr PREOP IV 03/16/17 06:00 03/16/17 18:00 Vital Signs: Date Time Temp Pulse Resp B/P (MAP) Pulse Ox O2 Delivery O2 Flow Rate FiO2 03/15/17 10:00 72 22 100/66 (77) 94 Room Air 03/15/17 09:44 36.6 62 24 104/80 97 Room Air 03/15/17 08:00 97 Room Air 03/15/17 08:00 36.6 62 24 104/80 (88) 97 Room Air 03/15/17 06:02 62 120/75 (90) 94 03/15/17 05:47 62 140/86 (104) 98 03/15/17 05:32 62 98/71 (80) 97 03/15/17 05:17 62 135/72 (93) 94 03/15/17 05:02 62 133/67 (89) 89 03/15/17 04:47 60 127/53 (77) 94 03/15/17 04:32 61 148/64 (92) 95 03/15/17 04:17 64 134/87 (103) 94 03/15/17 04:02 36.8 61 119/78 (92) 95 Room Air 03/15/17 04:00 Room Air 03/15/17 03:47 69 118/94 (102) 95 03/15/17 03:32 70 152/93 (112) 96 03/15/17 03:02 68 159/80 (106) 94 03/15/17 02:48 78 150/80 (103) 90 03/15/17 02:32 77 150/76 (100) 95 03/15/17 02:17 76 164/78 (106) 93 03/15/17 02:02 63 172/77 (108) 95 03/15/17 01:47 63 157/71 (99) 94 03/15/17 01:33 62 145/69 (94) 96 03/15/17 01:17 61 139/103 (115) 97 03/15/17 01:02 70 150/77 (101) 90 03/15/17 00:47 63 138/71 (93) 93 03/15/17 00:32 60 143/77 (99) 95 Room Air 03/15/17 00:32 37.1 60 143/77 (99) 95 03/15/17 00:17 60 103/72 (82) 95 Room Air 03/15/17 00:02 36.7 62 115/55 (75) 96 Room Air 03/14/17 23:59 Room Air 03/14/17 23:47 61 140/96 (111) 94 Room Air 03/14/17 23:32 63 114/51 (72) 92 Room Air 03/14/17 23:17 60 110/60 (77) 96 03/14/17 23:02 67 139/73 (95) 92 03/14/17 22:02 61 153/70 (97) 93 03/14/17 20:00 36.4 73 154/97 (116) 95 Room Air 03/14/17 20:00 99 Room Air 03/14/17 19:30 67 157/47 (83) 95 03/14/17 19:15 78 83 03/14/17 19:00 66 144/71 (95) 96 Room Air 03/14/17 18:50 69 133/79 (97) 96 03/14/17 18:25 70 16 165/92 (116) 95 Room Air 03/14/17 16:47 54 139/80 (99) 92 Room Air 03/14/17 16:32 63 134/71 (92) 93 Room Air 03/14/17 16:02 36.6 58 16 170/79 (109) 94 Room Air 03/14/17 16:00 99 Room Air 03/14/17 15:00 61 16 144/66 99 Room Air 03/14/17 14:30 66 16 116/71 99 Room Air 03/14/17 14:15 59 18 131/73 99 Room Air 03/14/17 14:00 53 16 136/72 99 Room Air 03/14/17 13:45 59 16 139/77 99 Room Air 03/14/17 13:30 57 14 121/73 100 Room Air 03/14/17 13:15 57 16 140/73 99 Room Air 03/14/17 12:57 67 18 178/108 100 Nasal Cannula 2.0 03/14/17 12:51 56 18 190/77 98 Room Air 03/14/17 12:41 60 20 190/77 96 Room Air 03/14/17 12:38 54 16 200/84 93 Room Air 03/14/17 12:33 48 16 150/86 94 Room Air 03/14/17 12:32 42 03/14/17 12:25 100 Nasal Cannula 2.0 03/14/17 12:12 54 03/14/17 11:51 63 16 168/87 100 Room Air 62 170/109 79 173/95 03/14/17 10:37 67 03/14/17 10:36 36.3 68 18 191/97 95 Room Air Laboratory Results: Last 24 Hours Test 03/14/17 11:00 03/14/17 16:30 03/14/17 17:01 03/14/17 23:10 White Blood Count 7.44 K/uL Red Blood Count 4.70 M/uL Hemoglobin 14.0 g/dL Hematocrit 41.5 % Mean Corpuscular Volume 88.3 fL Mean Corpuscular Hemoglobin 29.8 pg Mean Corpuscular Hemoglobin Concent 33.7 g/dl Platelet Count 228 K/uL Mean Platelet Volume 10.2 fL Neutrophils (%) (Auto) 60.2 % Lymphocytes (%) (Auto) 28.8 % Monocytes (%) (Auto) 8.5 % Eosinophils (%) (Auto) 1.9 % Basophils (%) (Auto) 0.3 % Neutrophils # (Auto) 4.49 K/uL Lymphocytes # (Auto) 2.14 K/uL Monocytes # (Auto) 0.63 K/uL Eosinophils # (Auto) 0.14 K/uL Basophils # (Auto) 0.02 K/uL RDW Standard Deviation 44.8 fL RDW Coefficient of Variation 13.7 % Immature Granulocyte % (Auto) 0.3 % Immature Granulocyte # (Auto) 0.02 K/uL Prothrombin Time 11.2 SECONDS Prothromb Time International Ratio 1.0 Sodium Level 143 mmol/L Potassium Level 4.0 mmol/L Chloride Level 110 mmol/L Carbon Dioxide Level 26 mmol/L Anion Gap 7.0 mmol/L Blood Urea Nitrogen 13 mg/dl Creatinine 0.97 mg/dl Est Creatinine Clear Calc Drug Dose 58.0 ml/min Estimated GFR () 66.7 Estimated GFR (Non- 57.5 BUN/Creatinine Ratio 13.4 Random Glucose 99 mg/dl Calcium Level 8.5 mg/dl Magnesium Level 2.2 mg/dl Total Creatine Kinase 58 U/L 57 U/L 88 U/L Creatine Kinase MB < 0.5 ng/ml < 0.5 ng/ml < 0.5 ng/ml Creatine Kinase MB Ratio Troponin I < 0.015 ng/ml < 0.015 ng/ml 0.066 ng/ml Thyroid Stimulating Hormone (TSH) 3.230 uIu/ml Lyme Disease IgG Antibody NEG Lyme Disease IgM Antibody NEG Bedside Glucose 102 mg/dl Chemistry Specimen Hemolysis Test 03/15/17 05:49 White Blood Count 8.42 K/uL Red Blood Count 4.64 M/uL Hemoglobin 13.7 g/dL Hematocrit 41.2 % Mean Corpuscular Volume 88.8 fL Mean Corpuscular Hemoglobin 29.5 pg Mean Corpuscular Hemoglobin Concent 33.3 g/dl Platelet Count 207 K/uL Mean Platelet Volume 10.6 fL Neutrophils (%) (Auto) 54.6 % Lymphocytes (%) (Auto) 33.8 % Monocytes (%) (Auto) 9.3 % Eosinophils (%) (Auto) 2.0 % Basophils (%) (Auto) 0.2 % Neutrophils # (Auto) 4.59 K/uL Lymphocytes # (Auto) 2.85 K/uL Monocytes # (Auto) 0.78 K/uL Eosinophils # (Auto) 0.17 K/uL Basophils # (Auto) 0.02 K/uL RDW Standard Deviation 44.8 fL RDW Coefficient of Variation 13.8 % Immature Granulocyte % (Auto) 0.1 % Immature Granulocyte # (Auto) 0.01 K/uL Sodium Level 146 mmol/L Potassium Level 3.7 mmol/L Chloride Level 112 mmol/L Carbon Dioxide Level 27 mmol/L Anion Gap 7.0 mmol/L Blood Urea Nitrogen 12 mg/dl Creatinine 0.91 mg/dl Est Creatinine Clear Calc Drug Dose 61.8 ml/min Estimated GFR () 72.0 Estimated GFR (Non- 62.2 BUN/Creatinine Ratio 12.8 Random Glucose 98 mg/dl Calcium Level 8.4 mg/dl Phosphorus Level 2.8 mg/dl Magnesium Level 2.2 mg/dl Total Bilirubin 0.8 mg/dl Aspartate Amino Transf (AST/SGOT) 22 U/L Alanine Aminotransferase (ALT/SGPT) 22 U/L Alkaline Phosphatase 54 U/L Total Protein 6.4 gm/dl Albumin 3.5 gm/dl Globulin 2.9 gm/dl Albumin/Globulin Ratio 1.2 Triglycerides Level 124 mg/dl Cholesterol Level 163 mg/dl HDL Cholesterol 50 mg/dl LDL Cholesterol, Calculated 88 mg/dl VLDL Cholesterol, Calculated 25 mg/dl Cholesterol/HDL Ratio 3.3
[2017-03-15] MEDS ORDERED: FENTANYL CITRATE INJ 50 MCG/1 ML 2 ML VIAL ONE (11:10)
[2017-03-15] MEDS ORDERED: MIDAZOLAM HCL 5 MG/ML 1 ML VIAL ONE (11:10)
[2017-03-15] MEDS ORDERED: LIDOCAINE HCL 1% 20 ML VIAL ONE (11:11)
[2017-03-15] MEDS ORDERED: BACITRACIN 50000 UNIT VIAL ONE (11:11)
[2017-03-15] MEDS ORDERED: BUPIVACAINE 0.5 % 5 MG/1 ML MPF 30ML VIAL ONE (11:11)
--- NOTE | 2017-03-15 11:11 | CARDIOLOGY CONSULTATION ---
DATE OF CONSULTATION: 03/15/2017 REFERRING PHYSICIAN: Dr. Lionel Freeman. CHIEF COMPLAINT: Syncope. HISTORY OF PRESENT ILLNESS: Mrs. Luci Loaiza is a 72-year-old woman who recently experienced a series of syncopal episodes. Initially, the patient was at home and experienced a syncopal episode in the bathroom. She was accompanied by her and had suffered a mild injury to her face. The morning following that incident, the patient apparently had another witnessed episode while in the seated position. The patient was transported to [facility] for an evaluation where she was noted to have sinus arrest and associated symptoms of presyncope and syncope. The patient states that she has minimal prodrome associated with the episode. She does get a brief sensation of dizziness and a feeling in her chest. The episodes themselves appear to have started quite recently. She denied any additional episodes of dizziness or lightheadedness leading up to her syncopal episode 2 days ago. In general, she is very sedentary. She states she was interested in the beginning with exercise program but is yet to do so. She ambulates around her house without notable symptoms of dyspnea or chest discomfort. She is not aware of any palpitations. Over the past several months, she has noted increasing dyspnea and difficulty with activity due to what she describes as fatigue. She denies any orthopnea or paroxysmal nocturnal dyspnea. She denies any recent constitutional symptoms such as fevers or chills. She has an occasional cough which is nonproductive, rare and longstanding in nature. PAST MEDICAL HISTORY: Significant for: 1. Colon polyps. 2. Renal dysfunction. 3. Dyslipidemia. 4. Ulcerative colitis remotely. 5. Hypertension. PAST SURGICAL HISTORY: Includes: 1. Cataracts. 2. Hysterectomy. 3. Appendectomy. 4. Cholecystectomy. 5. Spine injection. FAMILY HISTORY: Noncontributory but no premature coronary disease. SOCIAL HISTORY: Significant for remote history of tobacco abuse but no history of alcohol abuse. Currently lives with her locally. OUTPATIENT MEDICATIONS: Include aspirin, atorvastatin, and vitamin D. MEDICAL ALLERGIES: No known medical allergy. REVIEW OF SYSTEMS: Complete review of systems was performed and the pertinent positives are noted in the history of present illness, the remainder being negative with the exception of some memory difficulties. Over the past several months, the patient has had some difficulty with word finding and overall mentation has been different. PHYSICAL EXAMINATION: GENERAL: The patient is alert and oriented. Mood and affect appear normal. She answers all questions appropriately. She is in no acute distress. VITAL SIGNS: Include blood pressure 100/66 with a pulse of 72. HEENT: Her sclerae are anicteric. Her pupils are equal, reactive to light and accommodation. Extraocular movements are intact. NECK: Palpation of submandibular region did not reveal any significant lymphadenopathy. Carotids are palpable bilaterally. There are no bruits on auscultation. I did not appreciate any jugular venous distention, although she did have a catheter in the right internal jugular vein. Thyroid is not enlarged. NEUROLOGIC: Reveals the cranial nerves to be intact. LUNGS: Auscultation of both lungs reveals them to be clear. There are no rales, wheezes or rhonchi. CARDIAC: Reveals her to be in a regular rhythm with normal S1, normal S2. I did not appreciate any murmurs on exam. PMI is not markedly displaced on palpation. ABDOMEN: Soft and nontender. EXTREMITIES: Evaluation of both wrists reveals radial pulses that are equal in intensity. There is no evidence of cyanosis or clubbing. Evaluation of her lower extremities did not reveal any significant peripheral edema, although she did have SCDs in place. I did not appreciate any rashes on exam today. LABORATORY STUDIES: Since admission included a white cell count of 8.4, hemoglobin of 13.7, a platelet count of 207. Sodium is 146, potassium is 3.7, BUN is 12, creatinine is 0.9. Cardiac troponin is 0.06. The patient did have a chest x-ray at the time of admission which did not reveal any evidence of acute cardiopulmonary disease. Head CT scan was also performed which did not reveal any evidence of acute ischemia or hemorrhage. The patient had a 12-lead EKG obtained at the time of admission which revealed her to be in sinus bradycardia without significant conduction abnormality. Echocardiogram was also obtained which revealed preserved LV systolic function. ASSESSMENT AND PLAN: Syncope: The patient has evidence of sinus arrest associated with her episodes. The patient actually does have a suggestion of sinus node dysfunction with her bradycardia. Does not appear to be other conduction disease such as atrioventricular michelle disease. Etiology behind her dysfunction is also unclear, this is likely age related. She is not on any medical therapy which should have precipitated these events. Her thyroid function is normal and she did not appear to be at risk for Lyme disease. Lyme disease is more likely to produce some form of atrioventricular block and her Lyme titers were also negative. There is a possibility that she has a form of infiltrative disease, although this has not produced any evidence of cardiomyopathy. This is also more likely to produce some form of atrioventricular block rather than simple sinus arrest. At this juncture, it seems obvious that she will require some form of pacing support. Temporary pacemaker was placed last night due to the recurrent nature of her episode. I did discuss the risks, benefits and alternatives to a permanent implant, she is agreeable and we will plan on proceeding later today.
--- NOTE | 2017-03-15 11:20 | ECHOCARDIOGRAM REPORT ---
*NOTICE TO RECEIVING CONSTITUTION PARTY AGENCY This information is strictly Confidential and protected under [place] law. [place] law prohibits you from making any further disclosure of this information unless further disclosure is expressly permitted by the written consent of the person to whom it pertains or is authorized by law. A general authorization for the release of medical or other information is not sufficient for this purpose. Hospital accepts no responsibility if the information is made available to any other person, INCLUDING THE PATIENT. Interpretation Summary * Name: MARGA ALBERT Study Date: 03/14/2017 02:35 PM BP: 131/73 mmHg * Patient Location: .ED HR: 59 * : 1945 (M/d/yyyy) Gender: Female Height: 65 in * Age: 72 yrs Ethnicity: CA Weight: 209 lb * Ordering Physician: Lindsey Moraes * Performed By: Sophia Wong * * Reason For Study: CARDIAC ARREST * BSA: 2.0 m2 * -- Conclusions -- * Normal LV chamber size with mild concentric LVH, sigmoid appearing septum. * Normal LV systolic function, EF 55-60%. * No segmental left ventricular wall motion abnormalities are noted. * Grade I diastolic dysfunction. * No significant valvular pathology. Procedure Details * A complete two-dimensional transthoracic echocardiogram was performed (2D, M-mode, Doppler and color flow Doppler). * The study was technically limited. * The study was technically difficult. * There were technical limitations due to patient'sbody habitus * A contrast injection of Definity was performed to improve assessment of LV function. * Contrast was injected into an intravenous site in the left arm. * One vial of Definity ultrasound contrast was diluted in normal saline to a total volume of 10 ml. A total of '4' ml of solution was administered during imaging. * Lot # [id number] of Definity utilized for procedure. * Expiration date 04/10. * The attending nurse who injected the contrast agent was BAIRON ARIZA RN. Left Ventricle * The left ventricle is normal in size. * There is no thrombus. * There is mild concentric left ventricular hypertrophy. * The basal septum is thickened and angulated consistent with sigmoid septum. * Ejection Fraction = 55-60%. * Left ventricular systolic function is normal. * No segmental left ventricular wall motion abnormalities are noted. * The left ventricular wall motion is normal. Right Ventricle * The right ventricular cavity size is normal (basal dimension <4.2 cm in right ventricular apical 4-chamber view). * The right ventricular systolic function is normal as assessed by tricuspid annular plane systolic excursion (TAPSE) (normal >1.5 cm). Atria * The left atrial size is normal. * Right atrial size is normal. * No ASD detected; PFO is not assessed. Mitral Valve * The mitral valve is normal in structure and function. Tricuspid Valve * The tricuspid valve is normal in structure and function. Aortic Valve * The aortic valve is not well visualized. * No hemodynamically significant valvular aortic stenosis. * There is no significant aortic regurgitation. Pulmonic Valve * The pulmonary valve is not well seen, but the Doppler examination is normal without significant regurgitation or stenosis. Great Vessels * The aortic root is not well visualized. Pericardium/Pleural * There is no pericardial effusion. Left Ventricular Diastolic Function * Grade I diastolic dysfunction, (abnormal relaxation pattern). MMode 2D Measurements and Calculations IVSd 1.7 cm IVSs 2.2 cm LVIDd 3.4 cm LVIDs 2.2 cm LVPWd 1.1 cm LVPWs 1.5 cm IVS/LVPW 1.5 FS 35.2 % EDV(Teich) 46.4 ml ESV(Teich) 15.9 ml EF(Teich) 65.7 % EDV(cubed) 38.3 ml ESV(cubed) 10.4 ml EF(cubed) 72.7 % % IVS thick 27.0 % % LVPW thick 28.5 % LV mass(C)d 167.6 grams LV mass(C)dI 83.2 grams/m\S\2 LV mass(C)s 154.7 grams LV mass(C)sI 76.7 grams/m\S\2 SV(Teich) 30.5 ml SI(Teich) 15.1 ml/m\S\2 SV(cubed) 27.8 ml SI(cubed) 13.8 ml/m\S\2 LVAd ap4 32.6 cm\S\2 LVLd ap4 7.8 cm EDV(MOD-sp4) 111.4 ml EDV(sp4-el) 116.2 ml LVAs ap4 18.7 cm\S\2 LVLs ap4 6.3 cm ESV(MOD-sp4) 46.5 ml ESV(sp4-el) 47.2 ml EF(MOD-sp4) 58.3 % EF(sp4-el) 59.4 % LVAd ap2 32.0 cm\S\2 LVLd ap2 7.5 cm EDV(MOD-sp2) 110.8 ml EDV(sp2-el) 116.2 ml LVAs ap2 18.0 cm\S\2 LVLs ap2 6.0 cm ESV(MOD-sp2) 45.0 ml ESV(sp2-el) 46.2 ml EF(MOD-sp2) 59.4 % EF(sp2-el) 60.2 % LVLd %diff -3.63 % EDV(MOD-bp) 113.5 ml LVLs %diff -5.81 % ESV(MOD-bp) 46.7 ml EF(MOD-bp) 58.8 % SV(MOD-sp4) 64.9 ml SI(MOD-sp4) 32.2 ml/m\S\2 SV(MOD-sp2) 65.8 ml SI(MOD-sp2) 32.7 ml/m\S\2 SV(MOD-bp) 66.7 ml SI(MOD-bp) 33.1 ml/m\S\2 SV(sp4-el) 69.0 ml SI(sp4-el) 34.2 ml/m\S\2 SV(sp2-el) 69.9 ml SI(sp2-el) 34.7 ml/m\S\2 Doppler Measurements and Calculations MV E max becky 79.1 cm/sec MV A max becky 111.2 cm/sec MV E/A 0.71 MV dec time 0.36 sec Ao V2 max 121.6 cm/sec Ao max PG 5.9 mmHg Ao max PG (full) 1.4 mmHg LV V1 max PG 4.5 mmHg LV V1 max 106.6 cm/sec PA V2 max 43.1 cm/sec PA max PG 0.74 mmHg
[2017-03-15] MEDS ORDERED: OXYCODONE HCL IR 5 MG TAB (IMMEDIATE RELEASE) PO PRN (12:30)
--- NOTE | 2017-03-15 13:03 | OPERATIVE REPORT ---
DATE OF OPERATION: 03/15/2017 PROCEDURE PERFORMED: Implantation of dual chamber permanent pacemaker. STAFF DISPENSING OPTICIAN: Dr. Abdullahi Del Toro. INDICATIONS: Ms. Luci Loaiza is a 72-year-old woman who presented to [facility] with syncope and sinus arrest. Due to the nature of her symptoms she was felt to be a good candidate for dual chamber pacemaker due to symptomatic nonreversible sinus node dysfunction. A dual chamber device was selected as the patient is currently in sinus rhythm and we wish to maintain AV synchrony. PROCEDURE IN DETAIL: The patient was informed of risks, benefits and alternatives to the intended procedure. She understood such and wished to proceed. She was taken to the electrophysiology suite in a fasting state. Preoperative antibiotic had been administered. The patient was monitored electrocardiographically throughout today's procedure and conscious sedation was administered per protocol. The left deltopectoral area was prepped and draped in usual sterile fashion. This area was anesthetized using subcutaneous administration of xylocaine and Marcaine solution. An incision was made at this site and carried down to the prepectoralis fascia using sharp dissection. Electrocautery was also employed for dissection as well as for hemostasis. A device pocket was fashioned in the tissues above the pectoralis muscles. Subsequent to this left axillary vein was accessed twice using the modified Seldinger technique. Sheaths were placed over guidewires at this site and used for passage of the pacing wires to their respective chambers under fluoroscopic guidance. This included right atrial and right ventricular leads. Adequate sensing and threshold parameters were obtained prior to active fixation of these leads to the endocardial surface. The proximal portion of the leads were then sutured to the prepectoralis fascia using nonabsorbable suture. The device pocket was irrigated with an antibiotic solution. Leads were then attached to the device. The device and leads were then placed in the pocket and the pocket was closed in 3 layers with absorbable sutures. Steri-strips and sterile dressing were applied. The device was tested noninvasively prior to conclusion of the procedure. The patient tolerated the procedure well. There were no immediate complications. EQUIPMENT USED: 1. New pulse generator, artist's representative Medtronic model #A2DR01, serial #[id number]. 2. Right atrial lead, artist's representative Med[employer]onic, model #4076, serial #[id number]. 3. Right ventricular lead, artist's representative Medtronic, model #4076, serial #[id number]. MEASURE DATA: 1. Right atrial lead: P-waves measured 1.9 millivolts, pacing threshold was 0.5 volts at 0.4 milliseconds with a pacing impedance of 437 ohms. 2. Right ventricular lead: R-waves measured 11.6 millivolts, pacing threshold was 0.5 volts, 0.4 milliseconds with a pacing impedance of 855 ohms. IMPRESSION: Successful implantation of dual chamber permanent pacemaker. PLAN: The patient will be monitored in the rapp overnight. Additional dose of antibiotics will be administered. Chest x-ray and reinterrogation of the device will be performed in the morning. Should all parameters be adequate and the patient be feeling well she will be considered for discharge at that time. I attest to the content of the Intraoperative Record and any orders documented therein. Any exception s are noted below.
--- NOTE | 2017-03-15 17:00 | Progress Note ---
Subjective Date of Service: Mar 15, 2017. Subjective Pt evaluation today including: conversation w/ patient, physical exam, lab review, review of studies, review of inpatient medication list Saw/examined the patient in room 104 she had a permanent pacemaker inserted today Doing well No chest pain/shortness of breath Still has issues with word finding Problem List Medical Problems: (1) Head injury, closed Status: Acute (2) Syncope Status: Acute (3) Word finding problem Status: Acute Review of Systems Constitutional: No fever, No chills Respiratory: No shortness of breath Cardiac: No chest pain Abdomen: No pain, No nausea, No vomiting, No diarrhea Neurologic: No weakness, No numbness/tingling, No vertigo Heme: No abnormal bleeding/bruising Medications Current Inpatient Medications Medications (Trade) Dose Ordered Sig/Fabby Route Start Time Stop Time Status Last Admin Dose Admin Acetaminophen (Tylenol Tab) 650 mg Q4H PRN PO 03/14/17 13:30 04/13/17 13:29 03/14/17 20:24 650 MG Nitroglycerin (Nitrostat Tab) 0.4 mg UD PRN SL 03/14/17 13:30 04/13/17 13:29 Ondansetron HCl (Zofran Inj) 4 mg Q6H PRN IV 03/14/17 13:30 04/13/17 13:29 Enoxaparin Sodium (Lovenox Inj) 40 mg Q24H SQ 03/14/17 21:00 04/13/17 20:59 Future Hold Dopamine HCl/ Dextrose 250 ml @ 0 mls/hr Q0M PRN IV 03/14/17 18:00 04/13/17 17:59 Cefazolin Sodium 2000 mg/Dextrose 60 ml @ 100 mls/hr Q8H IV 03/15/17 19:00 03/16/17 18:59 Acetaminophen (Tylenol Tab) 650 mg Q4H PRN PO 03/15/17 12:30 04/14/17 12:29 Oxycodone HCl (Roxicodone Immediate Rel Tab) 5 mg Q6 PRN PO 03/15/17 12:30 03/29/17 12:29 03/15/17 16:02 5 MG Objective Vital Signs Date Time Temp Pulse Resp B/P (MAP) Pulse Ox O2 Delivery O2 Flow Rate FiO2 6/22/17 16:00 98 Room Air 03/15/17 16:00 36.8 61 18 157/86 (109) 98 Room Air 03/15/17 13:33 75 106/81 (89) 97 Room Air 03/15/17 13:02 60 114/71 (85) 94 Room Air 03/15/17 13:00 96 Room Air 03/15/17 12:47 36.6 62 129/78 (95) 96 Room Air 03/15/17 12:32 61 16 135/74 (94) 94 Room Air 03/15/17 12:17 68 13 139/82 (101) 99 Mask 6 03/15/17 10:00 72 22 100/66 (77) 94 Room Air 03/15/17 09:44 36.6 62 24 104/80 97 Room Air 03/15/17 08:00 97 Room Air 03/15/17 08:00 36.6 62 24 104/80 (88) 97 Room Air 03/15/17 06:02 62 120/75 (90) 94 03/15/17 05:47 62 140/86 (104) 98 03/15/17 05:32 62 98/71 (80) 97 03/15/17 05:17 62 135/72 (93) 94 03/15/17 05:02 62 133/67 (89) 89 03/15/17 04:47 60 127/53 (77) 94 03/15/17 04:32 61 148/64 (92) 95 03/15/17 04:17 64 134/87 (103) 94 03/15/17 04:02 36.8 61 119/78 (92) 95 Room Air 03/15/17 04:00 Room Air 03/15/17 03:47 69 118/94 (102) 95 03/15/17 03:32 70 152/93 (112) 96 03/15/17 03:02 68 159/80 (106) 94 03/15/17 02:48 78 150/80 (103) 90 03/15/17 02:32 77 150/76 (100) 95 03/15/17 02:17 76 164/78 (106) 93 03/15/17 02:02 63 172/77 (108) 95 03/15/17 01:47 63 157/71 (99) 94 03/15/17 01:33 62 145/69 (94) 96 03/15/17 01:17 61 139/103 (115) 97 03/15/17 01:02 70 150/77 (101) 90 03/15/17 00:47 63 138/71 (93) 93 03/15/17 00:32 60 143/77 (99) 95 Room Air 03/15/17 00:32 37.1 60 143/77 (99) 95 03/15/17 00:17 60 103/72 (82) 95 Room Air 03/15/17 00:02 36.7 62 115/55 (75) 96 Room Air 03/14/17 23:59 Room Air 03/14/17 23:47 61 140/96 (111) 94 Room Air 03/14/17 23:32 63 114/51 (72) 92 Room Air 03/14/17 23:17 60 110/60 (77) 96 03/14/17 23:02 67 139/73 (95) 92 03/14/17 22:02 61 153/70 (97) 93 03/14/17 20:00 36.4 73 154/97 (116) 95 Room Air 03/14/17 20:00 99 Room Air 03/14/17 19:30 67 157/47 (83) 95 03/14/17 19:15 78 83 03/14/17 19:00 66 144/71 (95) 96 Room Air 03/14/17 18:50 69 133/79 (97) 96 03/14/17 18:25 70 16 165/92 (116) 95 Room Air Physical Exam General Appearance: no apparent distress Respiratory/Chest: chest non-tender, lungs clear, normal breath sounds, no respiratory distress, no accessory muscle use, + pertinent finding (pacemaker inserted to the L chest - L arm in sling) Cardiovascular: regular rate, rhythm, no edema, no murmur Abdomen: normal bowel sounds, non tender, soft Extremities: normal inspection, no pedal edema Neurologic/Psychiatric: no motor/sensory deficits, alert, normal mood/affect Laboratory Results Last 24 Hours Test 03/14/17 17:01 03/14/17 23:10 03/15/17 05:49 03/15/17 14:27 Total Creatine Kinase 57 U/L 88 U/L Creatine Kinase MB < 0.5 ng/ml < 0.5 ng/ml Creatine Kinase MB Ratio Troponin I < 0.015 ng/ml 0.066 ng/ml Chemistry Specimen Hemolysis White Blood Count 8.42 K/uL Red Blood Count 4.64 M/uL Hemoglobin 13.7 g/dL Hematocrit 41.2 % Mean Corpuscular Volume 88.8 fL Mean Corpuscular Hemoglobin 29.5 pg Mean Corpuscular Hemoglobin Concent 33.3 g/dl Platelet Count 207 K/uL Mean Platelet Volume 10.6 fL Neutrophils (%) (Auto) 54.6 % Lymphocytes (%) (Auto) 33.8 % Monocytes (%) (Auto) 9.3 % Eosinophils (%) (Auto) 2.0 % Basophils (%) (Auto) 0.2 % Neutrophils # (Auto) 4.59 K/uL Lymphocytes # (Auto) 2.85 K/uL Monocytes # (Auto) 0.78 K/uL Eosinophils # (Auto) 0.17 K/uL Basophils # (Auto) 0.02 K/uL RDW Standard Deviation 44.8 fL RDW Coefficient of Variation 13.8 % Immature Granulocyte % (Auto) 0.1 % Immature Granulocyte # (Auto) 0.01 K/uL Sodium Level 146 mmol/L Potassium Level 3.7 mmol/L Chloride Level 112 mmol/L Carbon Dioxide Level 27 mmol/L Anion Gap 7.0 mmol/L Blood Urea Nitrogen 12 mg/dl Creatinine 0.91 mg/dl Est Creatinine Clear Calc Drug Dose 61.8 ml/min Estimated GFR () 72.0 Estimated GFR (Non- 62.2 BUN/Creatinine Ratio 12.8 Random Glucose 98 mg/dl Calcium Level 8.4 mg/dl Phosphorus Level 2.8 mg/dl Magnesium Level 2.2 mg/dl Total Bilirubin 0.8 mg/dl Aspartate Amino Transf (AST/SGOT) 22 U/L Alanine Aminotransferase (ALT/SGPT) 22 U/L Alkaline Phosphatase 54 U/L Total Protein 6.4 gm/dl Albumin 3.5 gm/dl Globulin 2.9 gm/dl Albumin/Globulin Ratio 1.2 Triglycerides Level 124 mg/dl Cholesterol Level 163 mg/dl HDL Cholesterol 50 mg/dl LDL Cholesterol, Calculated 88 mg/dl VLDL Cholesterol, Calculated 25 mg/dl Cholesterol/HDL Ratio 3.3 Bedside Glucose 118 mg/dl Test 03/15/17 16:29 Bedside Glucose 91 mg/dl Assessment and Plan This is a 72 year old female with recurrent syncopal episodes Syncope/Heart Block 03/15 s/p PPM doing well now appreciate cardiology input monitor in tele 03/14 admit to ICU check TSH, Lyme, Mg monitor in tele transvenous pacer trend enzymes, check echo repeat EKG in AM cardio consultation Hypertensive Urgency - resolved BP elevated high as 200 systolic in ER Improved spontaneously to 100s Was on Maxzide in the past; not currently on any antihypertensives at home Word Finding Difficulty/Possible Aphasia? no MRI due to PPM monitor outpatient neurology follow-up? Urinary Frequency - improved UA negative for infection HLD Continue statin DVT ppx Lovenox FULL CODE
--- NOTE | 2017-03-15 18:32 | PROGRESS NOTE ---
DATE: 03/15/2017 SUBJECTIVE: The patient was seen and examined after pacemaker and follow up with examination this morning. Is currently feeling well, tolerated the procedure well. Notes no chest pain or discomfort. Notes no dizziness or lightheadedness. Blood pressure is creeping up slightly. OBJECTIVE: VITAL SIGNS: Heart rate is 60 with intermittent atrial pacing. Blood pressure is 157/86. NECK: Notable for bandage at right IJ site. LUNGS: Clear. CHEST: Left precordial site of pacemaker insertion is without hematoma. CARDIOVASCULAR: Regular. There is no audible murmur or rub. ABDOMEN: Soft, nontender. EXTREMITIES: Without cyanosis or clubbing. There is no peripheral edema. IMPRESSION: A 72-year-old female presented with symptomatic sick sinus syndrome with Dominguez-Edwards syncope, now status post dual-chamber pacemaker insertion. PLAN: Continue to monitor in hospital overnight. Follow blood pressures with low threshold for adding antihypertensive as indicated. Continue all prehospital medications. Will reexamine in the a.m.
--- NOTE | 2017-03-15 18:55 | DIAGNOSTIC IMAGING REPORT ---
ULTRASOUND OF THE CAROTID ARTERIES CLINICAL HISTORY: Headache. COMPARISON STUDY: No priors. TECHNIQUE: Real-time, grayscale, and color Doppler sonography of the carotid arteries is performed. Images are reviewed in the transverse and longitudinal planes. FINDINGS: Blood pressures were not assessed. The carotid arteries are patent bilaterally and demonstrate antegrade flow. There is no significant atherosclerotic plaque seen. Normal doppler arterial waveforms are seen throughout. Velocity measurements are listed below. Common carotid peak systolic velocity (cm/sec): RIGHT: 53 LEFT: 64 ICA proximal peak systolic velocity (cm/sec): RIGHT: 42 LEFT: 59 ICA mid peak systolic velocity (cm/sec): RIGHT: 74 LEFT: 58 ICA distal peak systolic velocity (cm/sec): RIGHT: 61 LEFT: 74 ICA/CC peak systolic ratio: RIGHT: 1.4 LEFT: 1.2 Antegrade flow was shown in the vertebral arteries. The external carotid arteries are patent. IMPRESSION: 1. There is no sonographic evidence of hemodynamically significant stenosis in the right or left carotid arterial system. 2. Antegrade flow is shown in the vertebral arteries. Electronically signed by: Joey Kong M.D. 03/15/2017 6:53 PM Dictated Date/Time: 03/15/2017 6:52 PM
[2017-03-16] MEDS: ACETAMINOPHEN 325 MG TAB PO PRN ×4 (01:48→15:11)
[2017-03-16 04:08] VITALS: BP 136/77; PULSE 69; TEMP 36.8; O2SAT 94
[2017-03-16 04:31] VITALS: BP 146/74; PULSE 63; TEMP 37.1; O2SAT 94
[2017-03-16] MEDS ORDERED: CEFAZOLIN SOD 1000MG/55 ML D5W IV SCH (06:00)
[2017-03-16] MEDS ORDERED: CEFAZOLIN 2000 MG/60 ML D5W IV SCH (06:00)
[2017-03-16 06:41] LABS: BASO % 0.2 %; BASO ABS # 0.02 K/uL (0-0.2); COMPLETE YES; EOS % 1.7 %; IG% 0.2 %; LYMPH % 27.6 %; LYMPH ABS # 2.83 K/uL (1.2-3.4); MEAN CELL VOLUME 88.6 fL (80-100); MEAN CORPUSCULAR HGB CONC 33.9 g/dl (32-36); MEAN PLATELET VOLUME 10.4 fL (7.4-10.4); MONO % 9.1 %; NEUT % 61.2 %; PLATELET COUNT 204 K/uL (130-400); RED BLOOD COUNT 4.63 M/uL (4.2-5.4); WHITE BLOOD COUNT 10.27 K/uL (4.8-10.8)
[2017-03-16 07:08] LABS: CALCIUM 8.8 mg/dl (8.5-10.1); CREATININE 1.1 mg/dl (0.60-1.20); POTASSIUM 3.7 mmol/L (3.5-5.1)
--- NOTE | 2017-03-16 07:09 | DIAGNOSTIC IMAGING REPORT ---
CHEST 2 VIEWS ROUTINE CLINICAL HISTORY: Pacemaker placement COMPARISON STUDY: 03/14/2017 FINDINGS: The cardiac and mediastinal contours remain stable. There has been interval placement of a left subclavian dual-chamber central venous pacemaker. Electrodes position is unremarkable. There is no pneumothorax. There is no focal pulmonary consolidation. There are no pleural effusions.[ IMPRESSION: No evidence of pneumothorax status post placement of a left subclavian dual-chamber central venous pacemaker. Electronically signed by: Jb Paulino M.D. 03/16/2017 7:08 AM Dictated Date/Time: 03/16/2017 7:07 AM
[2017-03-16 07:49] VITALS: BP 142/85; PULSE 62; TEMP 37.1; O2SAT 95
[2017-03-16] MEDS ORDERED: DOCUSATE SODIUM 100 MG CAP PO ONE (10:15)
[2017-03-16] MEDS ORDERED: POLYETHYLENE (MIRALAX) 17 GM PACK PO SCH (10:15)
[2017-03-16] MEDS ORDERED: SENNA 8.6 MG TAB PO SCH (10:15)
[2017-03-16] MEDS ORDERED: DOCUSATE SODIUM 100 MG CAP PO PRN (10:15)
--- NOTE | 2017-03-16 10:28 | Clinical Documentation Query ---
STEPHANIA Ryan : CLINICAL DOCUMENTATION QUERY Patient is a 72 year old female admitted for evaluation of recurrent syncope. While in the ED, patient became unresponsive and per ED provider, experienced "asystole for roughly 8 to 15 seconds". Code Blue was called but patient had ROSC without intervention. H&P notes cardiac arrest with subsequent documentation reduced to "heart block", "sinus arrest", etc. These terms are neither explicitly or implicitly similar and accordingly differ in their respective severity of illness and risk of mortality. Please clarify as clinically appropriate. In your clinical opinion is this patient being managed for: ( ) Asystole, self limiting, resolved. ( ) Other explanation of clinical findings (Please Explain) ( ) Unable to determine (Please Define) ( ) Need to Discuss ( X ) Not Agree The medical record reflects the following clinical findings, treatment, and risk factors. Clinical Indicators: As above Treatment: Code blue called. Self limiting. Cardiology consultation, admission to ICU, insertion of permanent pacemaker. Risk Factors: Age, hypertension, obesity Please clarify and document your clinical opinion in the progress notes and discharge summary. Terms such as "probable", "suspected", "likely", "questionable", "possible", or "still to be ruled out" are acceptable. IF IN AGREEMENT, YOU MUST DOCUMENT ABOVE DIAGNOSTIC STATEMENT IN DAILY PROGRESS NOTES AND DISCHARGE SUMMARY. This document is not part of the patient's record. Thank You, Trenton Hampton RN [phone]
--- NOTE | 2017-03-16 10:31 | CARDIOLOGY PROGRESS NOTE ---
DATE: 03/16/2017 DATE: 03/16/2017. The patient seen and examined. Chart, medications, telemetry reviewed. SUBJECTIVE: The patient this morning once again complained of severe headache. Notes no other complaints, is mildly confused after pain medications. Notes no fevers, chills, unexplained infections. OBJECTIVE: VITAL SIGNS: Heart rate 62, blood pressure is 142/85. NECK: Nontender. LUNGS: Clear. CARDIOVASCULAR EXAMINATION: Regular, pacemaker sites with superficial ecchymosis though without hematoma or erythema. ABDOMEN: Soft, nontender. EXTREMITIES: Without cyanosis or clubbing. There is no peripheral edema. There are intact distal pulses. LABORATORY DATA: White cell count 10.2, hemoglobin is 13.9. Sodium is 140, potassium is 3.7, chloride is 107, bicarbonate 24, BUN is 15, creatinine is 1.1, glucose is 105. IMPRESSION: A 72-year-old female presented with sick sinus syndrome, acute Dominguez-Edwards syncope. She did experience mechanical fall prior to admission with head contusion, now with headache post-pacemaker insertion. The patient has been having headaches prior to the procedure, question whether this represents concussive syndrome. Blood pressures are elevated this morning, will reinstitute antihypertensive therapy with patient notes having been stopped approximately 6 months prior. Will begin with lower dose of lisinopril 5 mg per day. Increase activities in room. Depending clinical course today may be discharged later if headaches are controlled. CT scan done on admission demonstrated no pathology.
[2017-03-16 10:59] VITALS: BP 126/78; PULSE 61; TEMP 36.5; O2SAT 94
--- NOTE | 2017-03-16 11:15 | Progress Note ---
Subjective Date of Service: Mar 16, 2017. Subjective Pt evaluation today including: conversation w/ patient, conversation w/ family , physical exam, lab review, review of studies, conversation w/ lending consultant, review of inpatient medication list Saw/examined the patient in room 221 Doing well, no chest pain/shortness of breath +headache Problem List Medical Problems: (1) Head injury, closed Status: Acute (2) Syncope Status: Acute (3) Word finding problem Status: Acute Review of Systems Constitutional: No fever, No chills, No weakness Respiratory: No cough, No sputum, No shortness of breath Cardiac: No chest pain, No edema, No palpitations Abdomen: No pain, No nausea, No vomiting, No diarrhea Heme: No abnormal bleeding/bruising Medications Current Inpatient Medications Medications (Trade) Dose Ordered Sig/Fabby Route Start Time Stop Time Status Last Admin Dose Admin Nitroglycerin (Nitrostat Tab) 0.4 mg UD PRN SL 03/14/17 13:30 04/13/17 13:29 Ondansetron HCl (Zofran Inj) 4 mg Q6H PRN IV 03/14/17 13:30 04/13/17 13:29 Acetaminophen (Tylenol Tab) 650 mg Q4H PRN PO 03/15/17 12:30 04/14/17 12:29 03/16/17 08:51 650 MG Oxycodone HCl (Roxicodone Immediate Rel Tab) 5 mg Q6 PRN PO 03/15/17 12:30 03/29/17 12:29 03/15/17 16:02 5 MG Polyethylene (Miralax Powder Packet) 17 gm DAILY PO 03/16/17 10:15 04/15/17 10:14 03/16/17 10:55 17 GM Docusate Sodium (coLACE CAP) 100 mg BID PRN PO 03/16/17 10:15 04/15/17 10:14 Senna (Senokot Tab) 8.6 mg QAM PO 03/16/17 10:15 04/15/17 10:14 03/16/17 10:56 8.6 MG Objective Vital Signs Date Time Temp Pulse Resp B/P (MAP) Pulse Ox O2 Delivery O2 Flow Rate FiO2 03/16/17 08:00 Room Air 03/16/17 07:49 37.1 62 20 142/85 (104) 95 Room Air 03/16/17 04:31 37.1 63 20 146/74 (98) 94 Room Air 03/16/17 04:08 36.8 69 20 136/77 (96) 94 Room Air 03/16/17 04:00 Room Air 94 03/15/17 23:59 Room Air 92 03/15/17 23:39 37.1 68 20 153/82 (105) 92 Room Air 03/15/17 20:00 Room Air 03/15/17 19:45 36.8 70 20 170/95 (120) 96 Room Air 03/15/17 18:01 66 18 141/76 (97) 93 Room Air 03/15/17 16:00 98 Room Air 03/15/17 16:00 36.8 61 18 157/86 (109) 98 Room Air 03/15/17 13:33 75 106/81 (89) 97 Room Air 03/15/17 13:02 60 114/71 (85) 94 Room Air 03/15/17 13:00 96 Room Air 03/15/17 12:47 36.6 62 129/78 (95) 96 Room Air 03/15/17 12:32 61 16 135/74 (94) 94 Room Air 03/15/17 12:17 68 13 139/82 (101) 99 Mask 6 Physical Exam General Appearance: no apparent distress Respiratory/Chest: chest non-tender, lungs clear, normal breath sounds, no respiratory distress, no accessory muscle use, + pertinent finding (pacemaker at L chest wall) Cardiovascular: regular rate, rhythm, no edema, no gallop, no JVD, no murmur Extremities: normal inspection, no pedal edema Neurologic/Psychiatric: no motor/sensory deficits, alert, normal mood/affect Skin: normal color Laboratory Results Last 24 Hours Test 03/15/17 14:27 03/15/17 16:29 03/16/17 06:13 Bedside Glucose 118 mg/dl 91 mg/dl White Blood Count 10.27 K/uL Red Blood Count 4.63 M/uL Hemoglobin 13.9 g/dL Hematocrit 41.0 % Mean Corpuscular Volume 88.6 fL Mean Corpuscular Hemoglobin 30.0 pg Mean Corpuscular Hemoglobin Concent 33.9 g/dl Platelet Count 204 K/uL Mean Platelet Volume 10.4 fL Neutrophils (%) (Auto) 61.2 % Lymphocytes (%) (Auto) 27.6 % Monocytes (%) (Auto) 9.1 % Eosinophils (%) (Auto) 1.7 % Basophils (%) (Auto) 0.2 % Neutrophils # (Auto) 6.30 K/uL Lymphocytes # (Auto) 2.83 K/uL Monocytes # (Auto) 0.93 K/uL Eosinophils # (Auto) 0.17 K/uL Basophils # (Auto) 0.02 K/uL RDW Standard Deviation 44.3 fL RDW Coefficient of Variation 13.7 % Immature Granulocyte % (Auto) 0.2 % Immature Granulocyte # (Auto) 0.02 K/uL Sodium Level 140 mmol/L Potassium Level 3.7 mmol/L Chloride Level 107 mmol/L Carbon Dioxide Level 24 mmol/L Anion Gap 9.0 mmol/L Blood Urea Nitrogen 15 mg/dl Creatinine 1.10 mg/dl Est Creatinine Clear Calc Drug Dose 51.3 ml/min Estimated GFR () 57.3 Estimated GFR (Non- 49.4 BUN/Creatinine Ratio 14.0 Random Glucose 105 mg/dl Calcium Level 8.8 mg/dl Assessment and Plan This is a 72 year old female with recurrent syncopal episodes Syncope/Heart Block 03/16 s/p PPM, doing well interrogated today, functioning appropriately no pain 03/15 s/p PPM doing well now appreciate cardiology input monitor in tele 03/14 admit to ICU check TSH, Lyme, Mg monitor in tele transvenous pacer trend enzymes, check echo repeat EKG in AM cardio consultation Headache s/p fall, possibly post-concussive Tylenol with some improvement will try Advil ambulate in hallway Hypertensive Urgency - resolved 03/16 started on low dose Lisinopril 03/15 BP elevated high as 200 systolic in ER Improved spontaneously to 100s Was on Maxzide in the past; not currently on any antihypertensives at home Word Finding Difficulty/Possible Aphasia? no MRI due to PPM monitor outpatient neurology follow-up? Urinary Frequency - improved UA negative for infection HLD Continue statin DVT ppx Lovenox FULL CODE
[2017-03-16] MEDS ORDERED: IBUPROFEN 600 MG TAB ONE (11:35)
[2017-03-16] MEDS ORDERED: IBUPROFEN 200 MG TAB PO ONE (11:45)
--- NOTE | 2017-03-16 11:49 | CARDIOLOGY PROGRESS NOTE ---
DATE: 03/16/2017 SUBJECTIVE: This morning, Mrs. Loaiza complains primarily of a headache, it appears to be periorbital in nature and started last evening. She has minimal discomfort at her implant site. She has not had any more episodes of syncope. PHYSICAL EXAMINATION: GENERAL: She is alert and oriented. Mood and affect appeared appropriate. She was uncomfortable due to her periorbital discomfort. CURRENT VITAL SIGNS: Include, blood pressure 142/85 with a pulse of 62. CHEST: Evaluation of the implant site reveals some mild ecchymosis with a very small hematoma, but no active drainage. It is minimally tender to palpation. IMAGING DATA: The patient's chest x-ray revealed stable lead placement without evidence of pneumothorax. Device interrogation was performed this morning, which revealed normal device function. ASSESSMENT: 1. Successful implantation of dual chamber permanent pacemaker without evidence of complication. 2. Sinus arrest. The patient had syncope related to severe bradycardia which should be addressed with her new pacemaker. 3. Headache. This is periorbital in nature and might be related to an injury sustained during a prior episode of syncope. PLAN: At this point, the patient is stable for discharge with regard to her pacemaker. Standard precautions will include, refrain from lifting the left arm above the shoulder or behind the neck for a period of 6 weeks' time. She is to keep the incision dry for 1 week, leave the Steri-Strip intact. The patient should followup within the next week, likely at [facility] for wound evaluation. [facility] CENTERDwain
[2017-03-16] MEDS ORDERED: LSN5 PO (15:02)
--- NOTE | 2017-03-16 15:11 | Discharge Instructions ---
Discharge Instructions Date of Service Mar 16, 2017. Admission Reason for Admission: Cardiac Arrest, Syncope Discharge Discharge Diagnosis / Problem: Sick Sinus Syndrome; Syncope - s/p pacemaker in situ Discharge Goals Goal(s): Decrease discomfort, Improve function, Diagnostic testing, Therapeutic intervention Activity Recommendations Activity Limitations: resume your previous activity . Instructions / Follow-Up Instructions / Follow-Up Please follow-up with Dr. Liliam Mackey on March 23 at 11:45AM You will be started on lisinopril 5mg for blood pressure Please refrain from lifting the left arm above the shoulder for around 6 weeks; keep the incision site clean for one week and follow-up with cardiology in one week Current Hospital Diet Patient's current hospital diet: AHA Diet (Heart Healthy) Discharge Diet Recommended Diet: AHA Diet (Heart Healthy) Pending Studies Studies pending at discharge: no Laboratory Results Lipid Panel Test 03/15/17 05:49 Range/Units Triglycerides Level 124 0-150 mg/dl Cholesterol Level 163 0-200 mg/dl HDL Cholesterol 50 mg/dl Cholesterol/HDL Ratio 3.3 LDL Cholesterol, Calculated 88 mg/dl Medical Emergencies . Who to Call and When: Medical Emergencies: If at any time you feel your situation is an emergency, please call 911 immediately. . Non-Emergent Contact Non-Emergency issues call your: Primary Care Provider, Condominium Property Manager . . "Provider Documentation" section prepared by James Padilla. . VTE Core Measure Inpt VTE Proph given/why not?: Enoxaparin (Lovenox)SQ, SCD's
--- NOTE | 2017-03-16 15:17 | Discharge Summary ---
Discharge Summary Date of Service Mar 16, 2017. Discharge Summary Admission Date: Mar 14, 2017 at 13:19 Discharge Date: Mar 16, 2017 Discharge Disposition: Home Principal Diagnosis: Sick Sinus Syndrome s/p pacemaker Syncope Medication Reconciliation New Medications: Lisinopril (Lisinopril) 5 Mg Tab 5 MG PO DAILY for 30 Days, #30 TABS Continued Medications: Aspirin (Aspirin Ec) 325 Mg Tab 325 MG PO DAILY PRN for Pain Atorvastatin (Lipitor) 10 Mg Tab 10 MG PO HS, TAB Cholecalciferol (D3-50) 50,000 Unit Cap 1 CAP PO WK for 28 Days, #4 CAP 4 Refills Admission Information HPI (per Admitting provider): This is a 72 year old female with PMH of hypertension, dyslipidemia, CKD stage III, and other problems listed below who presented to the ED for syncope. Patient had 2 episodes of syncope in past 12 hours. First episode occurred last night- patient does not recall that episode. Her heard a thump from the next room and found her unconscious on the bathroom floor. There was no seizure activity or incontinence. She awoke after approximately 30 seconds. She sustained a facial bruise from falling. Then this morning while sitting on the couch she suddenly slumped backwards and became unconscious. This episode lasted under one minute. She denies any prodrome. No dizziness, chest pain, palpitations, SOB. 911 was called. states for EMS patient could not answer name of president but could answer other questions correctly. states mental status is at baseline in ER. No prior syncope since childhood. Patient was seen by PCP Dr. Mackey on 03/12 and noted word finding difficulty. Onset was 6 months ago. No other focal neurologic symptoms. She reports mild right sided ZAMARRIPA which is intermittent for weeks and self-resolves. Has chronic low back/ LLE pain. She also notes increased urinary frequency. On presentation to the ER patient was hypertensive to 190s systolic. Labetalol was ordered but not given as her BP lowered to 150s systolic. She was initially in NSR with no significant EKG findings. Labs were unremarkable. CT head showed no acute findings. Her stroke score was zero. During my exam patient stated she felt like she was going to faint. The head of bed was lowered. Patient then became unresponsive. Asystole on monitor. Gonsalo enrique was called. Within approximately 10 seconds she was found to have a pulse and awakened. Rhythm strip showed approximately 8 seconds of asystole. EKG showed sinus bradycardia without ischemic findings. HR improved from 40s to 50s- 60s. She was hypertensive to 200 systolic which improved to 120s-140s. She was evaluated by imaging system administrator Dr. Franks who performed bedside echo which showed no obvious wall motion or valve abnormalities. She is now feeling tired. No history of cardiac disorder, TIA, CVA. 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 II-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 nml as tested, no motor/sensory deficits, alert , normal mood/affect, oriented x 3 Skin: normal color, warm/dry Hospital Course This is a 72 year old female with recurrent syncopal episodes Syncope/Heart Block 03/16 s/p PPM, doing well interrogated today, functioning appropriately no pain 03/15 s/p PPM doing well now appreciate cardiology input monitor in tele 03/14 admit to ICU check TSH, Lyme, Mg monitor in tele transvenous pacer trend enzymes, check echo repeat EKG in AM cardio consultation Headache s/p fall, possibly post-concussive Tylenol with some improvement will try Advil ambulate in [facility] Hypertensive Urgency - resolved 03/16 started on low dose Lisinopril 03/15 BP elevated high as 200 systolic in ER Improved spontaneously to 100s Was on Maxzide in the past; not currently on any antihypertensives at home Word Finding Difficulty/Possible Aphasia? no MRI due to PPM monitor outpatient neurology follow-up? Urinary Frequency - improved UA negative for infection HLD Continue statin DVT ppx Lovenox FULL CODE Total time spent on discharge = 35 minutes This includes examination of the patient, discharge planning, medication reconciliation, and communication with other providers. Discharge Instructions Please follow-up with Dr. Liliam Mackey on March 23 at 11:45AM You will be started on lisinopril 5mg for blood pressure Please refrain from lifting the left arm above the shoulder for around 6 weeks; keep the incision site clean for one week and follow-up with cardiology in one week Additional Copies To Liliam Mackey D.O.
[2017-03-16 15:36] VITALS: BP 150/86; PULSE 60; TEMP 36.6; O2SAT 95
[2017-03-16 15:39] VITALS: BP 126/78; PULSE 61; TEMP 36.5; O2SAT 94
== END 2017-03-16 17:25 | disposition home or self-care (01) | DRG 242 ==
LOC: EDBD 10:31 → C.EDB 10:32 → ENRESERV 12:18 → CANRESERV 12:18 → C.MSICU 13:19 → EDBEDREQSVC 13:32 → EDBEDREQTM 13:32 → EDBEDREQ 13:34 → ENRESERV 14:31 → C.2T 03-15 19:09
PROVIDERS: ADMIT Family Medicine; ATTEND Family Medicine
PROC: 0JH606Z Insertion of Pacemaker, Dual Chamber into Chest Subcutaneous Tissue and Fascia, Open Approach (ICD-10-PCS; principal; 2017-03-15 11:18)
PROC: 02H63JZ Insertion of Pacemaker Lead into Right Atrium, Percutaneous Approach (ICD-10-PCS; principal; 2017-03-15 11:18)
PROC: 5A1223Z Performance of Cardiac Pacing, Continuous (ICD-10-PCS; principal; 2017-03-15 11:18)
PROC: 02HK3JZ Insertion of Pacemaker Lead into Right Ventricle, Percutaneous Approach (ICD-10-PCS; principal; 2017-03-15 11:18)
DX: I49.5 Sick sinus syndrome (principal); G93.41 Metabolic encephalopathy; K51.90 Ulcerative colitis, unspecified, without complications; I46.9 Cardiac arrest, cause unspecified; I10 Essential (primary) hypertension; E78.5 Hyperlipidemia, unspecified; N18.3 Chronic kidney disease, stage 3 (moderate); G44.309 Post-traumatic headache, unspecified, not intractable; W19.XXXA Unspecified fall, initial encounter; I16.0 Hypertensive urgency; Y92.009 Unspecified place in unspecified non-institutional (private) residence as the place of occurrence of the external cause; Z82.49 Family history of ischemic heart disease and other diseases of the circulatory system; Z87.891 Personal history of nicotine dependence

== ENCOUNTER → 2017-10-08 | Outpatient (CLI) | payer OTHER ==
[~2017-10-08] MED LIST: ASPI325T39 PO; ATOR10TA82 PO; CHOLCAP2 PO; LSN5 PO; NURSING VERBAL MED ORDER ONE
--- NOTE | 2017-10-08 10:01 | DIAGNOSTIC IMAGING REPORT ---
MRI OF THE BRAIN WITHOUT IV CONTRAST CLINICAL HISTORY: Dementia. Behavioral disturbance. Memory loss. COMPARISON STUDY: CT the brain dated 03/14/2017. TECHNIQUE: MRI of the brain was performed utilizing various T1 and T2-weighted sequences in the axial, sagittal, and coronal planes. IV contrast was not administered for this examination. FINDINGS: Brain parenchyma: There are age-related involutional changes noting mild subcortical and periventricular microangiopathic disease. There is no hemorrhage or mass effect. There is no restricted diffusion to suggest acute ischemia. Perez-white matter differentiation is preserved. No extra-axial fluid collection is seen. The cerebellar tonsils are normal in configuration. Ventricles, sulci, and cisterns: Prominent secondary to involutional change. Pituitary and sella: Unremarkable. Intracranial vasculature: Normal flow voids are maintained at the skull base. Orbits: The bony orbits are grossly intact. Orbital contents are normal in appearance noting bilateral ocular lens implants. Sinuses and mastoids: Clear. Calvarium: Unremarkable. Cervical cord: Partially visualized cervical spinal cord is normal in morphology and signal intensity. IMPRESSION: No acute intracranial abnormality. Electronically signed by: Joey Kong M.D. 10/08/2017 10:00 AM Dictated Date/Time: 10/08/2017 9:56 AM
== END | disposition home or self-care (01) ==
LOC: C.MRI 08:39
PROVIDERS: ATTEND Internal Medicine
DX: F03.90 Unspecified dementia, unspecified severity, without behavioral disturbance, psychotic disturbance, mood disturbance, and anxiety (principal)